=== PATIENT | female | born 1980 | race Caucasian/White ===

== ENCOUNTER → 2017-12-07 10:09 | Outpatient (CLI) | payer OTHER, SELFPAY ==
[2017-12-07 11:13] LABS: HCG,Quantitative 115 mIU/mL
== END ==
PROVIDERS: PCP Family Medicine; Visit Provider Nurse Practitioner Obstetrics & Gynecology
DX: Z32.00 Encounter for pregnancy test, result unknown (principal)
CPT/HCPCS: 36415; 84702

== ENCOUNTER → 2017-12-29 10:59 | Outpatient (CLI) | payer OTHER, SELFPAY ==
[2017-12-29 11:39] LABS: Basophils % 0.4 % (0.1-2.0); Eosinophils # 0.1 K/mm3 (0.0-0.4); Hematocrit 44.1 % (37.0-47.0); Hemoglobin 14.4 g/dL (12.2-16.2); Lymphocytes # 2.2 K/mm3 (0.7-4.5); Lymphocytes % 31.5 K/mm3 (10-50); Mean Corpuscular HGB Conc 32.6 g/dL (31.8-35.4); Mean Corpuscular Hemoglobin 30.7 pg (27.0-31.2); Mean Corpuscular Volume 94.2 fl (81-99); Mean Platelet Volume 7.1 fl (7.4-10.4); Monocytes # 0.3 K/mm3 (0.1-1.0); Monocytes % 4.4 % (1.7-9.3); Neutrophils # 4.4 K/mm3 (1.8-7.8); Neutrophils % 62.6 % (37.0-80.0); Platelet Count 228 K/mm3 (142-424); Red Blood Count 4.68 M/mm3 (4.20-5.40); Red Cell Distribution Width 13.2 % (11.5-17.5)
[2017-12-30 06:31] LABS: Rubella Antibodies, IgG 3.45 index (Immune >0.99)
[2017-12-30 12:37] LABS: HIV Screen 4th Generation wRfx Non Reactive (Non Reactive); Hepatitis B Surface Antigen Negative (Negative); Hepatitis C Antibody <0.1 s/co ratio (0.0-0.9); Rapid Plasma Reagin Ab Titer Non Reactive (NonRea<1:1)
== END ==
PROVIDERS: Family Provider Nurse Practitioner; PCP Family Medicine; Visit Provider Nurse Practitioner Obstetrics & Gynecology
DX: Z34.90 Encounter for supervision of normal pregnancy, unspecified, unspecified trimester (principal)
CPT/HCPCS: 36415; 85025; 86592; 86703; 86762; 86850; 87340; 87380; G0432

== ENCOUNTER → 2018-01-06 12:46 | Outpatient (CLI) | payer OTHER, SELFPAY ==
--- NOTE | 2018-01-06 12:47 | US_ITS ---
US OB transvaginal HISTORY: ITS.REASON: US OB Dates ORDERING PHYSICIAN: Papo Collins MD PATIENT AGE: 37 years COMPARISON: None FINDINGS: There is an intrauterine gestational sac with a mean sac diameter of 1 cm. Within the sac there is a small oval area of increased echogenicity. No heart tones are evident within this region. This measures 2 mm in length and could represent a compressed yolk sac or an early pole. A normal yolk sac is not identified. Cannot confirm viability at this time. The right ovary is 17 x 16 mm and has an unremarkable appearance. Blood flow is present. The left ovary is not demonstrated. No cul-de-sac fluid is evident. IMPRESSION: There is an intrauterine gestational. A 2 mm linear focus of increased echogenicity is present within the sac. This however does not contain heart tones and could represent a compressed yolk sac or an early pole however, normal yolk sac is not identified. Cannot confirm viability. Recommend correlation with serial beta hCGs and follow-up ultrasound.
[2018-01-06 16:32] LABS: HCG,Quantitative 16673 mIU/mL
== END ==
PROVIDERS: Family Provider Nurse Practitioner; PCP Family Medicine; Visit Provider Nurse Practitioner Obstetrics & Gynecology
DX: O26.841 Uterine size-date discrepancy, first trimester (principal)
CPT/HCPCS: 36415; 76817; 84702

== ENCOUNTER → 2018-01-06 14:21 | Outpatient (CLI) | payer OTHER, SELFPAY | PROVIDERS: PCP Family Medicine; Visit Provider Nurse Practitioner Obstetrics & Gynecology | DX: O26.841 Uterine size-date discrepancy, first trimester (principal) | CPT/HCPCS: 36415; 84702 ==

== ENCOUNTER → 2018-01-09 14:00 | Outpatient (CLI) | payer OTHER, SELFPAY ==
[2018-01-09 16:11] LABS: HCG,Quantitative 16961 mIU/mL
== END ==
PROVIDERS: PCP Family Medicine; Visit Provider Nurse Practitioner Obstetrics & Gynecology
DX: Z34.90 Encounter for supervision of normal pregnancy, unspecified, unspecified trimester (principal)
CPT/HCPCS: 36415; 84702

== ENCOUNTER → 2018-01-11 11:27 | Outpatient (CLI) | payer OTHER, SELFPAY ==
[2018-01-11 13:32] LABS: HCG,Quantitative 11921 mIU/mL
== END ==
PROVIDERS: PCP Family Medicine; Visit Provider Nurse Practitioner Obstetrics & Gynecology
DX: Z34.90 Encounter for supervision of normal pregnancy, unspecified, unspecified trimester (principal)
CPT/HCPCS: 36415; 84702

== ENCOUNTER → 2018-01-13 09:50 | Outpatient (CLI) | payer OTHER, SELFPAY ==
--- NOTE | 2018-01-13 09:51 | US_ITS ---
US OB transvaginal CLINICAL INDICATION: Follow-up miscarriage ITS.REASON: ORDERING PHYSICIAN: Papo Collins MD PATIENT AGE: 37 years Comparison: 01/06/2018 FINDINGS: The uterus is 9.5 x 3.9 x 3.9 cm. The endometrium is thickened at 1.3 cm with heterogeneous increased echogenicity within the endometrial area as well as some fluid in the lower endometrial region. The left ovary is 4 x 2 cm containing multiple small cysts. The right ovary is 2 x 1.8 cm and contains a 1 cm cyst. No cul-de-sac fluid. IMPRESSION: Heterogeneous echogenic material within the endometrium consistent with blood. Cannot exclude retained products of conception. Follow-up recommended
== END ==
PROVIDERS: Family Provider Nurse Practitioner; PCP Family Medicine; Visit Provider Nurse Practitioner Obstetrics & Gynecology
DX: O26.841 Uterine size-date discrepancy, first trimester (principal)
CPT/HCPCS: 76817

== ENCOUNTER → 2018-01-17 15:05 | Outpatient (CLI) | payer OTHER, SELFPAY | PROVIDERS: PCP Family Medicine; Visit Provider Nurse Practitioner Obstetrics & Gynecology | DX: O02.1 Missed abortion (principal) | CPT/HCPCS: 36415; 85461 ==

== ENCOUNTER → 2018-06-23 10:47 | Outpatient (CLI) | payer OTHER, SELFPAY ==
[2018-06-23 12:11] LABS: HCG,Quantitative 63 mIU/mL
== END ==
PROVIDERS: Visit Provider Nurse Practitioner Obstetrics & Gynecology
DX: Z32.00 Encounter for pregnancy test, result unknown (principal)
CPT/HCPCS: 36415; 84702

== ENCOUNTER → 2018-06-29 09:02 | Outpatient (CLI) | payer OTHER, SELFPAY ==
[2018-06-29 12:13] LABS: HCG,Quantitative 631 mIU/mL
== END ==
PROVIDERS: Visit Provider Nurse Practitioner Obstetrics & Gynecology
DX: Z34.90 Encounter for supervision of normal pregnancy, unspecified, unspecified trimester (principal)
CPT/HCPCS: 36415; 84702

== ENCOUNTER → 2018-07-05 13:05 | Outpatient (CLI) | payer OTHER, SELFPAY ==
[2018-07-05 15:22] LABS: Basophils % 0.4 % (0.1-2.0); Eosinophils # 0.1 K/mm3 (0.0-0.4); Eosinophils % 0.8 % (0.1-12.0); Hematocrit 43.1 % (37.0-47.0); Hemoglobin 14.7 g/dL (12.2-16.2); Lymphocytes # 2.2 K/mm3 (0.7-4.5); Lymphocytes % 31.1 % (10-50); Mean Corpuscular Hemoglobin 31.3 pg (27.0-31.2); Mean Corpuscular Volume 91.9 fl (81-99); Mean Platelet Volume 7.5 fl (7.4-10.4); Monocytes # 0.3 K/mm3 (0.1-1.0); Neutrophils # 4.6 K/mm3 (1.8-7.8); Neutrophils % 63.7 % (37.0-80.0); Platelet Count 256 K/mm3 (142-424); Red Blood Count 4.69 M/mm3 (4.20-5.40); Red Cell Distribution Width 12.7 % (11.5-17.5); White Blood Count 7.2 K/mm3 (4.8-10.8)
[2018-07-06 08:27] LABS: HIV Screen 4th Generation wRfx Non Reactive (Non Reactive)
[2018-07-06 15:08] LABS: Hepatitis B Surface Antigen Negative (Negative); Hepatitis C Antibody 0.1 s/co ratio (0.0-0.9); Rapid Plasma Reagin Ab Titer Non Reactive (NonRea<1:1)
== END ==
PROVIDERS: Visit Provider Nurse Practitioner Obstetrics & Gynecology
DX: Z34.90 Encounter for supervision of normal pregnancy, unspecified, unspecified trimester (principal)
CPT/HCPCS: 36415; 85025; 86592; 86703; 86762; 86850; 87340; 87380; G0432

== ENCOUNTER → 2018-07-09 09:14 | Outpatient (CLI) | payer OTHER, SELFPAY ==
[2018-07-09 11:25] LABS: HCG,Quantitative 11147 mIU/mL
== END ==
PROVIDERS: PCP Family Medicine; Visit Provider Emergency Medicine
DX: O20.9 Hemorrhage in early pregnancy, unspecified (principal)
CPT/HCPCS: 36415; 84702

== ENCOUNTER → 2018-12-06 16:39 | Outpatient (CLI) | payer OTHER, MEDICAID, SELFPAY ==
[2018-12-09 18:46] LABS: Neisseria gonorrhoeae, NAA Negative (Negative)
== END ==
PROVIDERS: Visit Provider Nurse Practitioner Obstetrics & Gynecology
DX: R30.0 Dysuria (principal); Z72.51 High risk heterosexual behavior
CPT/HCPCS: 87491; 87591

== ENCOUNTER → 2018-12-11 09:51 | Outpatient (CLI) | payer OTHER, MEDICAID, SELFPAY ==
[2018-12-11 10:47] LABS: HCG,Quantitative 117 mIU/mL
== END ==
PROVIDERS: PCP Nurse Practitioner Obstetrics & Gynecology; Visit Provider Nurse Practitioner Obstetrics & Gynecology
DX: Z32.00 Encounter for pregnancy test, result unknown (principal)
CPT/HCPCS: 36415; 84702

== ENCOUNTER → 2018-12-18 10:30 | Outpatient (CLI) | payer OTHER, MEDICAID, SELFPAY ==
[2018-12-18 11:41] LABS: HCG,Quantitative 3315 mIU/mL
== END ==
PROVIDERS: Visit Provider Nurse Practitioner Obstetrics & Gynecology
DX: Z34.90 Encounter for supervision of normal pregnancy, unspecified, unspecified trimester (principal)
CPT/HCPCS: 36415; 84702

== ENCOUNTER → 2019-01-03 10:02 | Outpatient (CLI) | payer MEDICAID, SELFPAY ==
[2019-01-03 10:48] LABS: Basophils % 0.4 % (0.1-2.0); Eosinophils # 0.1 K/mm3 (0.0-0.4); Hemoglobin 13.1 g/dL (12.2-16.2); Lymphocytes # 2.2 K/mm3 (0.7-4.5); Lymphocytes % 28.1 % (10-50); Mean Corpuscular Hemoglobin 30.4 pg (27.0-31.2); Mean Corpuscular Volume 94.9 fl (81-99); Mean Platelet Volume 7.4 fl (7.4-10.4); Monocytes # 0.4 K/mm3 (0.1-1.0); Monocytes % 5.1 % (1.7-9.3); Neutrophils # 5.1 K/mm3 (1.8-7.8); Neutrophils % 65.4 % (37.0-80.0); Platelet Count 230 K/mm3 (142-424); Red Blood Count 4.32 M/mm3 (4.20-5.40); Red Cell Distribution Width 14.3 % (11.5-17.5); White Blood Count 7.7 K/mm3 (4.8-10.8)
[2019-01-04 23:10] LABS: HIV Screen 4th Generation wRfx Non Reactive (Non Reactive); Hepatitis B Surface Antigen Negative (Negative); Hepatitis C Antibody <0.1 s/co ratio (0.0-0.9)
[2019-01-04 23:11] LABS: Rapid Plasma Reagin Ab Titer Non Reactive (NonRea<1:1); Rubella Antibodies, IgG 4.06 index (Immune >0.99)
== END ==
PROVIDERS: Visit Provider Nurse Practitioner Obstetrics & Gynecology
DX: Z34.90 Encounter for supervision of normal pregnancy, unspecified, unspecified trimester (principal)
CPT/HCPCS: 36415; 85025; 86592; 86703; 86762; 86850; 87340; 87380; G0432

== ENCOUNTER → 2019-04-06 07:40 | Outpatient (CLI) | payer OTHER, SELFPAY ==
--- NOTE | 2019-04-06 08:37 | US_ITS ---
PROCEDURE: US OB /MATERNAL DETAIL CLINICAL INDICATION: 20 WEEK ANATOMY Ob ultrasound complete COMPARISON: OBTV US OB transvaginal from 07/07/2018 FINDINGS: Single viable intrauterine gestation. Breech position. Placenta: Anteriorplacenta grade 1. There is average amount fluid. The cervix appears satisfactory. Closed and measuring 3.7 cm in length via transabdominal imaging. Complete survey performed and was unremarkable on the submitted images as in PACS. No discrete anomalies identified on survey imaging by technologist. Active fetus. Three-vessel cord with satisfactory umbilical cord insertion. 4- chamber heart noted. Survey of brain & ventricles Unremarkable. Face and neck survey unremarkable. Diaphragm and chest views unremarkable. Abdomen: Both kidneys noted and unremarkable. Stomach noted and satisfactory. Spine: Survey of the spine satisfactory with no anomalies identified nor imaged. Both arms and legs noted. Amniotic Fluid: Adequate. Maternal adnexa: No significant findings. Measurements: Average ultrasound age 21weeks. Gestational Age 21weeks Estimated due date by ultrasound age 0508/17/2019. Estimated weight 369grams. BPD = 21weeks 3days OFD = 21weeks 3days HC = 20weeks 5days AC = 20weeks 5days FL = 20weeks 5days Growth Percentile= 59Percent% Heart Rate = 138bpm Cerebellum = 20weeks 5days Humerus = 21weeks 3days HC/AC is 1.18 CI is 0.78 FL/BPD is 0.67 FL/AC is 0.22 IMPRESSION: Single live fetus in breech presentation with an average ultrasound age of 21 weeks and 0 days. All parameters correlate with no obvious anomalies. Please see above for detail Dictated by: Tyler Smyth MD 04/07/2019 07:24 Electronically signed by Tyler Smyth MD in [facility] 04/07/2019 07:24
== END ==
PROVIDERS: PCP Nurse Practitioner Obstetrics & Gynecology; Visit Provider Nurse Practitioner Obstetrics & Gynecology
DX: Z36.0 Encounter for antenatal screening for chromosomal anomalies (principal)
CPT/HCPCS: 76811

== ENCOUNTER → 2019-05-22 07:23 | Outpatient (CLI) | payer OTHER, SELFPAY ==
[2019-05-22 07:55] LABS: Glucose,Fasting 87 mg/dl (74-100)
[2019-05-22 09:38] LABS: Glucose 1 Hour 136 mg/dL (74-100)
== END ==
PROVIDERS: Visit Provider Nurse Practitioner Obstetrics & Gynecology
DX: O26.899 Other specified pregnancy related conditions, unspecified trimester (principal); Z67.91 Unspecified blood type, Rh negative
CPT/HCPCS: 36415; 82951

== ENCOUNTER 2019-05-23 08:23 | Outpatient (CLI) | payer OTHER, SELFPAY ==
[2019-05-23 08:25] VITALS: BP 115/78; PULSE 103; RESP 18; TEMP 36.7; O2SAT 98
== END 2019-05-23 08:37 | disposition home or self-care (01) ==
LOC: INF 08:23
PROVIDERS: PCP Nurse Practitioner; Visit Provider Nurse Practitioner Obstetrics & Gynecology
DX: Z34.90 Encounter for supervision of normal pregnancy, unspecified, unspecified trimester (principal)
CPT/HCPCS: 96372; J2790

== ENCOUNTER 2019-06-10 11:17 | Outpatient (CLI) | payer OTHER, SELFPAY ==
[2019-06-10 11:25] VITALS: BP 131/94; PULSE 95; RESP 18; TEMP 36.8; O2SAT 98; BMI 24.9
[2019-06-10 11:41] LABS: Microscopic, Urine URINE MICROSCOPIC (MICROSCOPIC)
[2019-06-10 11:45] LABS: Appearance,Urine CLEAR (Clear); Bilirubin,Urine Negative (Negative); Blood, Urine Negative (Negative); Color,Urine YELLOW (Yellow); Glucose,Urine (UA) Negative (Negative); Ketones,Urine Negative (Negative); Leukocyte Esterase,Urine TRACE (Negative); Nitrate,Urine Negative (Negative); Protein,Urine Negative (Negative); Specific Gravity, Urine 1.025 (1.005-1.030); Urobilinogen,Urine 0.2 EU/dl (0.2)
[2019-06-10 11:54] LABS: Amorphous Sediment,Urine 2+ /lpf
[2019-06-10 11:56] LABS: Benzodiazepines Screen,Urine Negative ng/ml (<200)
[2019-06-10 11:57] LABS: Amphetamine/Metha Screen,Urine Negative ng/ml (<1000)
[2019-06-10 11:58] LABS: Barbiturates Screen,Urine Negative ng/ml (<200); Methadone Screen,Urine Negative ng/ml (<300)
[2019-06-10 11:59] LABS: Cannabinoid Screen,Urine Negative ng/ml (<50); Cocaine Screen,Urine Negative ng/ml (<300)
[2019-06-10 12:00] LABS: Phencyclidine Screen,Urine Negative ng/ml (<25)
[2019-06-10 12:01] LABS: Opiate Screen,Urine Negative ng/ml (<300)
[2019-06-10 12:13] LABS: Fetal Fibronectin (Rapid) Negative (Negative)
== END 2019-06-10 13:20 | disposition home or self-care (01) ==
LOC: OBOUT 11:19 → OB 11:24
PROVIDERS: Obstetrics & Gynecology; PCP Family Medicine; Visit Provider Nurse Practitioner Obstetrics & Gynecology
DX: O47.03 False labor before 37 completed weeks of gestation, third trimester; Z3A.29 29 weeks gestation of pregnancy
CPT/HCPCS: 59025; 80305; 81001; 82731; 96372

== ENCOUNTER → 2019-07-23 17:11 | Outpatient (CLI) | payer OTHER, SELFPAY | PROVIDERS: Visit Provider Nurse Practitioner Obstetrics & Gynecology | DX: Z34.90 Encounter for supervision of normal pregnancy, unspecified, unspecified trimester (principal) | CPT/HCPCS: 86403 ==

== ENCOUNTER → 2019-07-25 07:46 | Outpatient (CLI) | payer OTHER, SELFPAY ==
--- NOTE | 2019-07-25 07:47 | US_ITS ---
PROCEDURE: US OB FOLLOW UP CLINICAL INDICATION: sga Small for gestational age COMPARISON: US OB /MATERNAL DETAIL from 04/06/2019 FINDINGS: There is a single live fetus present which is in cephalic presentation. The cervix is closed at 3.5 cm. Average ultrasound age is 37 weeks and 0 days with an estimated weight of 2870 g which is 53 percentile. Estimated due date by ultrasound is 08/15/2019. Following parameters are obtained BPD 37 weeks 5 days, HC 38 weeks 2 days, AC 35 weeks 5 days, FL 36 weeks 6 days. All parameters correlate. The placenta is anterior and grade 1. [place] 16 cm. Biophysical profile 8 of 8 IMPRESSION: Live IUP at 37 weeks 0 days with an estimated weight of 2870 g which is 53rd percentile. Biophysical profile 8 of 8. Amniotic fluid index 16 cm Dictated by: Tyler Smyth MD 07/25/2019 16:25 Electronically signed by Tyler Smyth MD in [facility] 07/25/2019 16:25
== END ==
PROVIDERS: PCP Family Medicine; Visit Provider Nurse Practitioner Obstetrics & Gynecology
DX: O36.5990 Maternal care for other known or suspected poor fetal growth, unspecified trimester, not applicable or unspecified (principal)
CPT/HCPCS: 76816; 76819

== ENCOUNTER 2019-07-31 10:07 | Outpatient (CLI) | payer OTHER, SELFPAY ==
[2019-07-31 10:13] VITALS: BMI 27.0
[2019-07-31 10:30] VITALS: BP 140/79; PULSE 94; RESP 18; TEMP 36.7; O2SAT 96; BMI 27.0
[2019-07-31 10:38] LABS: Microscopic, Urine URINE MICROSCOPIC (MICROSCOPIC)
[2019-07-31 10:43] LABS: Appearance,Urine CLEAR (Clear); Bilirubin,Urine Negative (Negative); Blood, Urine TRACE-I (Negative); Color,Urine YELLOW (Yellow); Glucose,Urine (UA) Negative (Negative); Ketones,Urine Negative (Negative); Leukocyte Esterase,Urine 1+ (Negative); Nitrate,Urine Negative (Negative); Protein,Urine Negative (Negative); Urobilinogen,Urine 0.2 EU/dl (0.2)
[2019-07-31 10:50] LABS: Fetal Membrane Rupture (Rapid) Negative (Negative)
[2019-07-31 10:54] LABS: Barbiturates Screen,Urine Negative ng/ml (<200); Benzodiazepines Screen,Urine Negative ng/ml (<200)
[2019-07-31 10:55] LABS: Amphetamine/Metha Screen,Urine Negative ng/ml (<1000)
[2019-07-31 10:56] LABS: Bacteria,Urine 2+ /lpf; Cannabinoid Screen,Urine Negative ng/ml (<50); Cocaine Screen,Urine Negative ng/ml (<300)
[2019-07-31 10:57] LABS: Methadone Screen,Urine Negative ng/ml (<300)
[2019-07-31 10:58] LABS: Opiate Screen,Urine Negative ng/ml (<300); Phencyclidine Screen,Urine Negative ng/ml (<25)
--- NOTE | 2019-07-31 11:22 | P.PN_ITS ---
Internal Medicine - PN: Subj *Date: 07/31/19 *Time: 11:22 Interval history: She says that she has been up all night with low back pain. She is having regular contractions. Her cervix is still closed and long. She also thinks that she may have been leaking fluid when she got out of the shower. Her AmniSure is negative. Exam Vital signs and Labs for Last 24 Hours: Temp Pulse Resp BP Pulse Ox 98.1 F 94 H 18 140/79 96 07/31/19 10:30 07/31/19 10:30 07/31/19 10:30 07/31/19 10:30 07/31/19 10:30 Laboratory Results - last 24 hr 07/31/19 10:15: Urine Color Yellow, Urine Appearance Clear, Urine pH 7.0, Ur Specific [place] 1.010, Urine Protein Negative, Urine Glucose (UA) Negative, Urine Ketones Negative, Urine Blood Trace-i, Urine Nitrate Negative, Urine Bilirubin Negative, Urine Urobilinogen 0.2, Ur Leukocyte Esterase 1+ A, Urine RBC 5-10, Urine WBC 10-20, Ur Squamous Epith Cells 10-20, Urine Bacteria 2+ 07/31/19 10:15: Urine Opiates Screen Negative, Urine Methadone Screen Negative, Ur Barbituates Screen Negative, Ur Phencyclidine Scrn Negative, Ur Amphetamines Screen Negative, U Benzodiazepines Scrn Negative, Urine Cocaine Screen Negative, U Marijuana (THC) Screen Negative 07/31/19 10:27: Membrane Rupture Negative I & O for Last 24 hours: Intake & Output 07/28/19 07/29/19 07/30/19 07/31/19 11:59 11:59 11:59 11:59 Weight 143 lb - Constitutional no acute distress - *Routine HEENT Exam Head: Present: normocephalic Eye: Present: EOMI, PERRL ENT: Present: mucous membranes moist Assessment and Plan (1) False labor after 37 completed weeks of gestation Current visit: Yes Status: Acute Category: Medical Code(s): O47.1 - False labor at or after 37 completed weeks of gestation - Assessment and plan all Dx Assessment and Plan for all problems:: She is 37 weeks today. She is having regular contractions. We have given her a liter of fluid and her contractions still persist. We will go ahead and give her some Brethine. AmniSure is negative. Cervix has not changed and is long and closed. We will plan to send her home if things settle.
[2019-07-31 11:50] VITALS: BP 129/66
== END 2019-07-31 12:04 | disposition home or self-care (01) ==
LOC: OBOUT 10:09 → OB 10:10
PROVIDERS: PCP Family Medicine; Visit Provider Nurse Practitioner Obstetrics & Gynecology
DX: O26.893 Other specified pregnancy related conditions, third trimester (principal); Z3A.36 36 weeks gestation of pregnancy
CPT/HCPCS: 59025; 80305; 81001; 84112; 87086; 96365; 96372; G0463

== ENCOUNTER → 2019-08-15 10:44 | Outpatient (CLI) | payer OTHER, SELFPAY ==
[2019-08-16 14:15] LABS: Covid-19 Nasal PCR Sendout Lex NOT DETECTED
== END ==
PROVIDERS: Visit Provider Nurse Practitioner Obstetrics & Gynecology
DX: Z03.818 Encounter for observation for suspected exposure to other biological agents ruled out (principal)
CPT/HCPCS: U0004

== ENCOUNTER 2019-08-17 05:25 | Inpatient (IN) | payer OTHER, SELFPAY ==
--- NOTE | 2019-08-14 08:51 | SUR.PREOP ---
08/14/2019 @ 0845--PHONE CALL MADE TO PATIENT. PATIENT UNDERSTANDS THAT LAB WORK AND COVID TESTING NEEDS TO BE COMPLETED @ 0900 ON 08/15/2019. PATIENT UNDERSTANDS IF LAB WORK AND COVID-19 TESTS ARE NOT COMPLETED BY 12PM ON THAT DATE, THE SURGERY SCHEDULED WILL BE CANCELLED AND RESCHEDULED FOR ANOTHER TIME.
[2019-08-17] VITALS (10 sets, daily range): BP systolic 117–144; BP diastolic 64–93; PULSE 71–96; RESP 16–18; TEMP 36.4–37; O2SAT 97–99; BMI 27.0
[2019-08-17 06:11] LABS: Microscopic, Urine URINE MICROSCOPIC (MICROSCOPIC)
[2019-08-17 06:17] LABS: Chloride 106 mmol/L (98-107); Sodium 132 mmol/L (136-145)
[2019-08-17 06:18] LABS: Basophils % 0.3 % (0.1-2.0); Eosinophils # 0.1 K/mm3 (0.0-0.4); Eosinophils % 0.8 % (0.1-12.0); Hematocrit 40.3 % (37.0-47.0); Hemoglobin 13.4 g/dL (12.2-16.2); Lymphocytes # 2.3 K/mm3 (0.7-4.5); Lymphocytes % 20.7 % (10-50); Mean Corpuscular HGB Conc 33.2 g/dL (31.8-35.4); Mean Corpuscular Hemoglobin 31.2 pg (27.0-31.2); Mean Corpuscular Volume 94.1 fl (81-99); Mean Platelet Volume 9.4 fl (7.4-10.4); Monocytes # 0.6 K/mm3 (0.1-1.0); Monocytes % 5.1 % (1.7-9.3); Neutrophils % 73.1 % (37.0-80.0); Platelet Count 179 K/mm3 (142-424); Potassium 3.9 mmoL/L (3.5-5.1); Red Blood Count 4.29 M/mm3 (4.20-5.40); Red Cell Distribution Width 14.4 % (11.5-17.5)
[2019-08-17 06:20] LABS: Blood Urea Nitrogen 11 mg/dl (7-17); Creatinine Clearance Estimated 130 mL/min (50-200); Estimated Glomerular Filt Rate 112 ml/min (>60); GFR (African American) 135 ML/MIN (>60)
[2019-08-17 06:20] LABS: Appearance,Urine CLEAR (Clear); Bilirubin,Urine Negative (Negative); Blood, Urine Negative (Negative); Color,Urine YELLOW (Yellow); Glucose,Urine (UA) Negative (Negative); Ketones,Urine Negative (Negative); Leukocyte Esterase,Urine TRACE (Negative); Nitrate,Urine Negative (Negative); Protein,Urine Negative (Negative); Specific Gravity, Urine >= 1.030 (1.005-1.030); Urobilinogen,Urine 0.2 EU/dl (0.2)
[2019-08-17 06:21] LABS: Anion Gap 10.9 mEq/L (5-15); Calcium 9.4 mg/dl (8.4-10.2); Carbon Dioxide 19 mmol/L (22.0-30.0); Glucose 83 mg/dl (74-100)
[2019-08-17 06:31] LABS: Barbiturates Screen,Urine Negative ng/ml (<200)
[2019-08-17 06:32] LABS: Amphetamine/Metha Screen,Urine Negative ng/ml (<1000); Benzodiazepines Screen,Urine Negative ng/ml (<200)
[2019-08-17 06:33] LABS: Cocaine Screen,Urine Negative ng/ml (<300)
[2019-08-17 06:34] LABS: Amorphous Sediment,Urine 1+ /lpf; Bacteria,Urine 2+ /lpf; Cannabinoid Screen,Urine Negative ng/ml (<50); Methadone Screen,Urine Negative ng/ml (<300); Mucus,Urine 3+ /lpf
[2019-08-17 06:35] LABS: Opiate Screen,Urine Negative ng/ml (<300)
[2019-08-17 06:36] LABS: Phencyclidine Screen,Urine Negative ng/ml (<25)
--- NOTE | 2019-08-17 08:40 | HMH.ANESCL ---
[facility] Anesthesia Checklist - Patient Identification Patient Identification: Arm Band - Structural Data Admitted From: Inpatient Planned Operative Procedure/s: repeat c/s with btl Consent for Planned Operative Procedure(s) Verified: Yes Verified Documents: Surgical Consent, History and Physical - NPO Status Verified Time NPO: 00:00 - Additional verifications Anesthesia Reactions: No Hx Blood Transfusions: No Blood Transfusion Reaction: No - Airway Assessment C-Spine Mobility Assessed: Yes (mp2) TMJ Mobility Assessed: Yes Dentition: Good Dentition - Neurological Assessment Level of Consciousness: Awake, Alert - Anesthesia Plan Anesthesia Risk discussed: Yes Anesthesia Plan: Verified ASA Class: II Anesthesia Type: Spinal [facility] History I have reviewed the patient's past medical history: Yes Medical History: Reports:: Anxiety, Depression, Migraine Denies:: Cancer, Diabetes Mellitus Type 1, Diabetes Mellitus Type 2, Internal Pacemaker, MRSA, Seizures *Have you ever received a pneumonia vaccine?: No *Have you received a flu vaccine this season?: No Other Medical History: Reports: Sinus Problems, Other. Denies: Blood Transfusion Reaction Anesthesia experience/problems:: nac Other Surgeries: Yes: (x2 first in june of 1999), Dilation and Curettage. No: Pacemaker Amputation: No Fractures: No - *Social History Smoking Status: Current every day smoker Tobacco Type: cigarettes # Packs/Day (cigarettes): 1 Alcohol Intake: never Alcohol Intake Frequency:: other Substance Use Type: denies use *Occupational Status:: unemployed Housing: house Household Members: spouse *Travel in the last 8 weeks: None - Psychiatric History Pschychiatric History:: Reports:: Anxiety, Depression Family Hx:: No significant family history GASOLINE ATTENDANT history: Spontaneous Para: 2
--- NOTE | 2019-08-17 08:41 | P.PN_ITS ---
[facility] Anesthesia Record Part I Intake, IV Amount: 2,000 Estimated blood loss (mL): 800 Urine output (mL): 375 Blood Pressure: 144/93 SaO2: 99 Pulse Rate: 79 Respiratory Rate: 16 Temperature: 97.7 F Patient is:: Awake, Stable Stable to PACU at:: 08:35
--- NOTE | 2019-08-17 09:04 | HMH.OPNOTE ---
Date of procedure: 08/17/19 Pre-op Diagnosis:: Term , desire for sterilization, previous section Post-op Diagnosis:: Term , previous section, desire for sterilization, uterine atony Procedure performed:: Repeat lower segment transverse section and bilateral salpingectomy Surgeon:: Papo Collins MD Oil Rag Washer(s):: Jolly Razo [employer] INSTRUCTOR:: Gordon Hall Anesthesia: spinal Estimated blood loss (mL): 800 Clinical Note:: She is a 39-year-old 6 para 2 aborta 3 who was 39 weeks gestational age. She has had 2 previous sections and as result of that she was scheduled for a repeat lower segment transverse section. She also expresses a desire for bilateral salpingectomy. The risks and benefits of surgery as well as the irreversibility of bilateral salpingectomy were discussed with the patient prior to surgery. Operative findings:: She had a normal-appearing uterus and ovaries and tubes. She delivered a liveborn male child at 7:49 AM on the morning of August 17, 2019. The baby had Apgars of 8 at 1 minute and 9 at 5 minutes. pH was 7.40. The uterus itself was quite boggy after the surgery. Operative note:: She was taken to the operating room where spinal anesthesia was found be adequate. She was prepped and draped in normal sterile fashion in the supine position with a leftward tilt. A Govea catheter was in the bladder. A Pfannenstiel skin incision was made with knife then carried through to the underlying layer of fascia with cautery. I had made a crescentic incision around the scar itself because it was quite wide and remove the scar tissue. The fascia was opened in the midline with cautery and extended laterally using Forrester scissors. Austin clamps were applied to the superior aspect of the fascial incision which was tented up and the underlying rectus muscles dissected off using cautery. The Austin clamps were then applied to the inferior aspect of the fascial incision which in a similar fashion was tented up and the underlying rectus muscles dissected off using cautery. The rectus muscles were then in the midline, the peritoneum identified, and entered sharply with Metzenbaum scissors. This incision was then extended superiorly and inferiorly with cautery. We had good visualization of the bladder inferiorly. The bladder peritoneum was then opened in the midline and extended laterally using Metzenbaum scissors. A bladder flap was created digitally. Transverse incision was made through the uterine muscle to the amnion. This incision was then extended laterally using fingers traction. The amnion was entered sharply with knife. There was clear amniotic fluid. The infant's head was then delivered atraumatically. A loose nuchal cord was then reduced. This was followed by the anterior shoulder and the rest of the infant's body atraumatically. The oropharynx and nasopharynx were bulb suctioned. The infant was then handed off to Dr. Huddleston. Who assigned Apgars of 8 at 1 minute and 9 at 5 minutes. We then obtained cord blood as well as cord pH. The pH was 7. 40. Using gentle traction on the cord and countertraction on the fundus I was able to easily deliver the placenta intact. It had a normal three-vessel cord. The uterus was then cleared of clots and debris . The uterus was then exteriorized from the abdominal cavity. The uterine incision was then closed using running 0 Vicryl suture in a locked fashion. A second layer of the same suture was used to imbricate the first layer. The bladder peritoneum was then closed using running 2-0 Vicryl suture in a locked fashion. The gutters and cul-de-sac were then cleared of clots and debris . Once again hemostasis was assured. We then performed a bilateral salpingectomy. The right tube was grasped with a [place] and using cautery I cauterized along the mesosalpinx. The tube was then cauterized close to the uterus. The tube was complet
--- NOTE | 2019-08-17 10:44 | HMH.ANESII ---
[facility] Anesthesia Record Part II Discharge Time: 09:05 Destination: Obstetric PACU nurse assessment reviewed?: Yes Patient Condition:: Good Anesthesia Complications:: None Swallowing reflex intact?: Yes Cyanosis?: No Blood Pressure: 120/77 Pulse Rate: 78 Temperature: 97.9 F Mental Status: Alert & Oriented Pain level:: 0 Nausea and/or vomitting:: None Intake, IV Amount: 0
[2019-08-17 14:14] LABS: Microscopic,Cath URINE MICROSCOPIC (MICROSCOPIC)
[2019-08-17 14:17] LABS: Appearance,Urine/Cath CLEAR (Clear); Bilirubin,Cath Negative (Negative); Blood, Urine/Cath 1+ (Negative); Color,Urine/Cath YELLOW (Yellow); Glucose,Urine/Cath (UA) Negative (Negative); Ketones,Urine/Cath Negative (Negative); Leukocyte Esterase,Cath Negative (Negative); Nitrate,Cath Negative (Negative); Protein,Urine/Cath Negative (Negative); Specific Gravity, Urine/Cath 1.015 (1.005-1.030); Urobilinogen,Cath 0.2 EU/dl (0.2)
[2019-08-17 14:58] LABS: Squamous Epithelial Ur./Cath Occasional #/hpf (0-5); WBC,Urine/Cath Occasional #/hpf (0-3)
[2019-08-18 05:07] LABS: Hematocrit 35.1 % (37.0-47.0)
[2019-08-18 05:08] LABS: Hemoglobin 11.6 g/dL (12.2-16.2)
[2019-08-18 08:00] VITALS: BP 108/66; RESP 16; TEMP 36.8
--- NOTE | 2019-08-18 13:25 | P.PN_ITS ---
Internal Medicine - PN: Subj *Date: 08/18/19 *Time: 13:25 Interval history: POD #1 c section No complaints Lochia small, pain control sufficient asymptomatic with mild anemia tolerating regular diet ambulating and voiding without difficulty Exam Vital signs and Labs for Last 24 Hours: Temp Pulse Resp BP Pulse Ox 98.3 F 96 H 16 108/66 L 99 08/18/19 08:00 08/17/19 16:23 08/18/19 08:00 08/18/19 08:00 08/17/19 16:23 Laboratory Results - last 24 hr 08/17/19 07:43: Urine Color Yellow, Urine Appearance Clear, Urine pH 7.0, Ur Specific [place] 1.015, Urine Protein Negative, Urine Glucose (UA) Negative, Urine Ketones Negative, Urine Blood 1+, Urine Nitrate Negative, Urine Bilirubin Negative, Urine Urobilinogen 0.2, Ur Leukocyte Esterase Negative, Urine RBC 5- 10, Urine WBC Occasional, Ur Squamous Epith Cells Occasional, Urine Bacteria None 08/18/19 04:55: Hgb 11.6 L D, Hct 35.1 L I & O for Last 24 hours: Intake & Output 08/16/19 08/17/19 08/18/19 08/19/19 11:59 11:59 11:59 11:59 Intake Total 1999 Output Total 375 / 375 760 / 760 Balance 1625 / 1625 -760 / -760 Weight 143 lb Microbiology Reports for the Last 24 Hours: Microbiology 08/17/19 05:45 Urine,Clean Catch Urine Culture - Preliminary Narrative: CONSTITUTIONAL: no acute distress HEENT: mucous membranes moist PULMONARY: breathing unlabored without audible wheezes CV: no tachycardia or visible JVD; normal LE peripheral pulses ABD: soft, ND; appropriately tender but no rebound/guarding : fundus firm at/below umbilicus SKIN: dressing intact with no drainage, erythema or induration EXT: 1+ edema LEs NEURO: alert/oriented, no altered mental status PSYCH: appropriate mood and demeanor without anxiety/depression Assessment and Plan (1) Delivery by section Current visit: Yes Status: Acute Category: Surgical (2) Acute blood loss anemia Current visit: Yes Status: Acute Category: Medical Code(s): D62 - Acute posthemorrhagic anemia - Assessment and plan all Dx Assessment and Plan for all problems:: Routine /postop care Continue PNV with FeSO4 Anticipate discharge home tomorrow
[2019-08-18 20:30] VITALS: BP 127/85; RESP 18; TEMP 36.8; O2SAT 99
--- NOTE | 2019-08-19 12:29 | HMH.DCSUM ---
General - General Admission date:: 08/17/19 Discharge date: 08/19/19 HPI HPI: She is a 39-year-old 6 now para 3 aborta 3 who was 39 and 2 weeks gestational age. She is had 2 previous sections and as result of that was offered repeat lower segment transverse section at term. She also expressed desire for sterilization and she was offered bilateral salpingectomy as well. Hospital Course Hospital Course: On August 17, 2019 she underwent a repeat lower segment transverse section and bilateral salpingectomy. She also had uterine atony and required a B-Mace suture. She has done well postoperatively and has remained afebrile with her hospitalization. She is O Rh- blood and she did not receive RhoGam since her baby has Rh- blood. She is rubella immune and was group B streptococcus negative. She is bottlefeeding. Her cook camp Dr. Huddleston. She is discharged home to follow-up with me in approximately 2 weeks time. She will continue with her vitamins and iron. She was given a prescription for Percocet 5/325 number 20 tablets. She will also take ibuprofen. She was given the usual instructions with respect to limiting her activity, driving and sexual activity. Her condition on discharge is stable and improved. Her hemoglobin is normal and she really did not lose a lot of blood intrapartum even though the blood loss was said to be 1900 cc. I suspect most of that was amniotic fluid. Rhogam Administration: Not Indicated Objective Vital signs: Temp Pulse Resp BP Pulse Ox 98.3 F 96 H 18 127/85 99 08/18/19 20:30 08/17/19 16:23 08/18/19 20:30 08/18/19 20:30 08/18/19 20:30 no acute distress - *Routine HEENT Exam Head: Present: normocephalic Eye: Present: EOMI, PERRL ENT: Present: mucous membranes moist Results Labs on day of discharge: Preliminary micro results at discharge 08/17/19 05:45 Urine Culture - Preliminary Urine,Clean Catch DS: Diagnosis - Discharge Diagnosis (1) Delivery by section Status: Acute (2) Acute blood loss anemia Status: Acute Discharge Plan - Patient Discharge Instructions ACTIVITY: No heavy lifting DIET: continue same diet Additional Instructions: No strenuous activity, no driving for 2 weeks or while taking prescription narcotics, nothing in the vagina for 6 weeks. Patient Instructions: Depression, Hemorrhage, DI for , DI for Pre-eclampsia, DI for Surgical Site Infection, DI for Postoperative Pain, [facility] Post Discharge Instructions, Preventing the Spread of Coronavirus Discharge Instructions - Follow up Plan Follow up with: Papo Collins MD [Staff Physician] - Disposition: Home, Self-Alf Medications: Home Medications Medication Instructions Recorded Confirmed Type 21/Iron Fu/Folic Acid 1 each PO DAILY 01/31/18 08/17/19 History [ Complete Caplet] RX: Ferrous Sulfate 325 mg PO DAILY 05/23/19 08/17/19 History Oxycodone HCl/Acetaminophen 1 tab PO Q6 PRN #20 tablet 08/19/19 Rx [Percocet 5/325mg tablet] Prescriptions/Medication Reconciliation: New Oxycodone HCl/Acetaminophen [Percocet 5/325mg tablet] 1 tab PO Q6 PRN #20 tablet PRN Reason: Severe Pain Continued 21/Iron Fu/Folic Acid [ Complete Caplet] 1 each PO DAILY RX: Ferrous Sulfate 325 mg PO DAILY - Problem Reconciliation Problems Reviewed?: Yes
== END 2019-08-19 14:40 | disposition home or self-care (01) | DRG 785 ==
PROVIDERS: Admitting Provider Nurse Practitioner Obstetrics & Gynecology; PCP Family Medicine; Visit Provider Nurse Practitioner Obstetrics & Gynecology
PROC: 0UL70ZZ Occlusion of Bilateral Fallopian Tubes, Open Approach (ICD-10-PCS; CPT 59514; principal; 2019-08-17 07:30)
DX: O34.211 Maternal care for low transverse scar from previous cesarean delivery (principal); N85.8 Other specified noninflammatory disorders of uterus; Z3A.39 39 weeks gestation of pregnancy; Z37.0 Single live birth; O69.81X0 Labor and delivery complicated by cord around neck, without compression, not applicable or unspecified; Z30.2 Encounter for sterilization
CPT/HCPCS: 59514; 58611; 59025; 80048; 80305; 81001; 82800; 85014; 85018; 85025; 86850; 87086; 88302; 94761; J2405; U0004

== ENCOUNTER → 2020-03-18 17:39 | Outpatient (CLI) | payer OTHER, SELFPAY ==
[2020-03-21 03:32] LABS: Neisseria gonorrhoeae, NAA Negative (Negative)
== END ==
PROVIDERS: Visit Provider Nurse Practitioner Obstetrics & Gynecology
DX: Z72.51 High risk heterosexual behavior (principal)
CPT/HCPCS: 87491; 87591

== ENCOUNTER → 2020-08-25 09:17 | Outpatient (CLI) | payer OTHER, SELFPAY | PROVIDERS: PCP Family Medicine; Visit Provider Nurse Practitioner Family | DX: Z20.822 Contact with and (suspected) exposure to COVID-19 (principal) | CPT/HCPCS: U0003 ==

== ENCOUNTER → 2020-11-18 14:39 | Outpatient (CLI) | payer OTHER, SELFPAY | PROVIDERS: PCP Family Medicine; Visit Provider Family Medicine | DX: Z20.822 Contact with and (suspected) exposure to COVID-19 (principal) | CPT/HCPCS: U0003 ==

== ENCOUNTER → 2021-01-02 14:33 | Outpatient (CLI) | payer OTHER, SELFPAY ==
--- NOTE | 2021-01-02 14:38 | XR_ITS ---
PROCEDURE: XR KNEE LT 3V CLINICAL INDICATION: INJURY OF LT KNEE, LT ANTERIOR KNEE PAIN COMPARISON: No exams were available for comparison FINDINGS: No fracture or dislocation. No lytic or blastic change. There is normal mineralization. The joint spaces are well-preserved. No significant degenerative/arthritic changes. No erosive changes evident. Other findings:None. IMPRESSION: No acute findings. Dictated by: Tyler Smyth MD 01/02/2021 14:58 Tyler Smyth MD in [facility] 01/02/2021 14:58
== END ==
PROVIDERS: PCP Family Medicine; Visit Provider Nurse Practitioner Family
DX: S89.92XA Unspecified injury of left lower leg, initial encounter (principal); M25.562 Pain in left knee
CPT/HCPCS: 73562

== ENCOUNTER → 2021-04-27 15:56 | Outpatient (CLI) | payer OTHER, SELFPAY | PROVIDERS: Visit Provider Nurse Practitioner | DX: U07.1 COVID-19 (principal) | CPT/HCPCS: C9803; U0003; U0005 ==

== ENCOUNTER → 2021-05-04 13:03 | Outpatient (CLI) | payer OTHER, SELFPAY | PROVIDERS: Visit Provider Nurse Practitioner | DX: U07.1 COVID-19 (principal) | CPT/HCPCS: C9803; U0003; U0005 ==

== ENCOUNTER 2021-11-18 05:13 | Emergency (ER) | payer SELFPAY ==
[2021-11-18] VITALS (8 sets, daily range): BP systolic 92–121; BP diastolic 53–67; PULSE 90–118; RESP 16–18; TEMP 36.7–36.9; O2SAT 93–100; BMI 23.0
--- NOTE | 2021-11-18 05:39 | XR_ITS ---
PROCEDURE INFORMATION: Exam: XR Chest Exam date and time: 11/18/2021 5:36 AM Age: 41 years old Clinical indication: Cough TECHNIQUE: Imaging protocol: Radiologic exam of the chest. Views: 2 views. COMPARISON: No relevant prior studies available. FINDINGS: Lungs: Hyperinflation, interstitial prominence, and localized right infrahilar airspace disease. Pleural spaces: No pleural effusion. Heart/Mediastinum: No cardiomegaly. Bones/joints: Unremarkable. IMPRESSION: Hyperinflation, interstitial prominence, and localized right infrahilar airspace disease.
[2021-11-18 05:50] LABS: Basophils # 0.1 K/mm3 (0-0.2); Basophils % 0.9 % (0.1-2.0); Eosinophils # 0.3 K/mm3 (0.0-0.4); Eosinophils % 1.6 % (0.1-12.0); Hematocrit 44.4 % (37.0-47.0); Hemoglobin 14.4 g/dL (12.2-16.2); Lymphocytes # 1.6 K/mm3 (0.7-4.5); Mean Corpuscular HGB Conc 32.5 g/dL (31.8-35.4); Mean Corpuscular Hemoglobin 31.3 pg (27.0-31.2); Mean Corpuscular Volume 96.3 fl (81-99); Mean Platelet Volume 8.2 fl (7.4-10.4); Monocytes # 0.5 K/mm3 (0.1-1.0); Monocytes % 3.1 % (1.7-9.3); Neutrophils # 13.6 K/mm3 (1.8-7.8); Neutrophils % 84.4 % (37.0-80.0); Platelet Count 229 K/mm3 (142-424); Red Blood Count 4.61 M/mm3 (4.20-5.40); Red Cell Distribution Width 13.3 % (11.5-17.5); White Blood Count 16.1 K/mm3 (4.8-10.8)
[2021-11-18 05:51] LABS: Coronavirus 19, PCR Not Detected (NotDetected); Influenza A, PCR Not Detected (NotDetected); Influenza B, PCR Not Detected (NotDetected)
[2021-11-18 05:54] LABS: Alanine Aminotransferase 15 U/L (12-78); Albumin Level 3.9 g/dl (3.5-5.0); Albumin/Globulin Ratio 1.1 (1.1-1.8); Alkaline Phosphatase 149 U/L (38-126); Amylase 54 U/L (30-110); Anion Gap 10.5 mEq/L (5-15); Aspartate Amino Transferase 21 U/L (14-36); Blood Urea Nitrogen 11 mg/dl (7-17); Calcium 8.8 mg/dl (8.4-10.2); Carbon Dioxide 25 mmol/L (22.0-30.0); Chloride 106 mmol/L (98-107); Creatinine Clearance Estimated 109 mL/min (50-200); Estimated Glomerular Filt Rate 111 ml/min (>60); GFR (African American) 134 ML/MIN (>60); Globulin 3.4 g/dL (1.3-3.2); Glucose 115 mg/dl (74-100); Lipase 37 U/L (23-300); Potassium 3.5 mmoL/L (3.5-5.1); Sodium 138 mmol/L (136-145); Total Protein,Serum 7.3 g/dl (6.3-8.2)
[2021-11-18 05:55] LABS: Bilirubin,Total < 0.1 mg/dl (0.2-1.3)
[2021-11-18 05:57] LABS: MANUAL DIFFERENTIAL MANUAL DIFFERENTIAL (MANUAL DIFF)
[2021-11-18 06:00] LABS: C-Reactive Protein 157.3 mg/L (0-4)
[2021-11-18 06:13] LABS: Lymphocytes % 14 % (10-50); Monocytes % 7 % (2-9); Neutrophils % 79 % (42-76); Platelet Estimate Normal; RBC Morphology Normal; Total Cells Counted 100
--- NOTE | 2021-11-18 06:16 | HMH.EDNVD ---
ED Disposition Clinical Impression: CAP (community acquired pneumonia) Qualifiers: Laterality: unspecified laterality Qualified Code(s): J18.9 - Pneumonia, unspecified organism Disposition: Home, Self-Care Condition on Discharge: Good Instructions: DI for Acute Bronchitis Additional Instructions: use meds and see pcp for follow up Prescriptions: Benzonatate [Benzonatate 100mg cap] 100 mg PO TID #21 cap Transmission Status: Pending to [facility] # levoFLOXacin [Levaquin 500mg tab] 500 mg PO DAILY #7 tab Transmission Status: Pending to [facility] # predniSONE [Prednisone 20mg Tab] 20 mg PO BID #10 tab Transmission Status: Pending to [facility] # Referrals: Lisa Holm APRN [Primary Care Provider] - - Critical Care Critical Care Time: No Attestation: On 11/18/21, the high probability of a clinically significant, sudden or life threatening deterioration of the following system(s) required my full and direct attention, intervention and personal management. The time I documented below is in addition to time spent performing reported procedures but includes the following listed in this critical care notation. Medical Decision Making - Medical Records Medical records reviewed: Yes: I reviewed the patient's medical records. - Quan Inquiry Pt receiving controlled substance: No Vital Signs: 11/18/21 05:16 11/18/21 05:32 11/18/21 06:00 Temperature 98.1 F Temperature Source Oral Pulse Rate 90 103 H Pulse Rate [Left] 118 H Respiratory Rate 18 Blood Pressure 96/53 L 92/59 L Blood Pressure [Right Arm] 121/60 Blood Pressure Mean [Right Arm] 80 02 Sat by Pulse Oximetry 95 93 L 95 Oxygen Delivery Method Room Air Room Air Room Air 11/18/21 06:30 11/18/21 06:32 11/18/21 06:38 Temperature Temperature Source Pulse Rate 97 H 109 H 109 H Pulse Rate [Left] Respiratory Rate 16 Blood Pressure 115/67 Blood Pressure [Right Arm] Blood Pressure Mean [Right Arm] 02 Sat by Pulse Oximetry 100 Oxygen Delivery Method Room Air 11/18/21 07:00 Temperature Temperature Source Pulse Rate 106 H Pulse Rate [Left] Respiratory Rate Blood Pressure 103/60 L Blood Pressure [Right Arm] Blood Pressure Mean [Right Arm] 02 Sat by Pulse Oximetry 94 L Oxygen Delivery Method Room Air - Lab Data Lab results reviewed: Yes: I reviewed the patient's lab results. Lab Results 11/18/21 05:24: SARS-CoV-2 (PCR) Not detected, Influenza A Untype (PCR) Not detected, Influenza Type B (PCR) Not detected 11/18/21 05:31: WBC 16.1 H, RBC 4.61, Hgb 14.4, Hct 44.4, MCV 96.3, MCH 31.3 H, MCHC 32.5, RDW 13.3, Plt Count 229, MPV 8.2, Neut % (Auto) 84.4 H, Lymph % (Auto) 10.0, Qu[place] % (Auto) 3.1, Eos % (Auto) 1.6, Baso % (Auto) 0.9, Neut # (Auto) 13.6 H, Lymph # (Auto) 1.6, [place] # (Auto) 0.5, Eos # (Auto) 0.3, Baso # (Auto) 0.1, Total Counted 100, Neutrophils % (Manual) 79 H, Lymphocytes % (Manual) 14, Monocytes % (Manual) 7, Platelet Estimate Normal, RBC Morphology Normal, ESR 27 H 11/18/21 05:31: Sodium 138, Potassium 3.5, Chloride 106, Carbon Dioxide 25, Anion Gap 10.5, BUN 11, Creatinine 0.60, Estimated Creat Clear 109, Estimated GFR 111, Est GFR ( Amer) 134, Glucose 115 H, Calcium 8.8, Total Bilirubin < 0.1 L, AST 21, ALT 15, Alkaline Phosphatase 149 H, C-Reactive Protein 157.3 H, Total Protein 7.3, Albumin 3.9, Globulin 3.4 H, Albumin/Globulin Ratio 1.1, Amylase 54, Lipase 37, Procalcitonin 20.0 H Result diagrams: 11/18/21 05:31 11/18/21 05:31 Orders (Tests/Meds): ED MEDICATIONS Generic Name Dose Route Start Last Admin Trade Name Freq PRN Reason Stop Dose Admin Albuterol Sulfate 2 puff 11/18/21 06:32 11/18/21 07:31 Albuterol-Hfa 90mcg/Puff Inhaler 8gm IH 12/18/21 06:31 2 puff Q4HP PRN Administration Shortness Of Breath Benzonatate 100 mg 11/18/21 07:45 Benzonatate 100mg Capsule PO 12/18/21 07:44 ONCE SC
[2021-11-18 06:23] LABS: Erythrocyte Sedimentation Rate 27 mm/hr (0-20)
--- NOTE | 2021-11-18 07:07 | PC.NURSE ---
Pt resting in bed. Updated on expected wait times. No new needs or complaints voiced.
== END 2021-11-18 07:51 | disposition home or self-care (01) ==
PROVIDERS: Emergency Provider Emergency Medicine; PCP Nurse Practitioner Family
DX: J18.9 Pneumonia, unspecified organism (principal); Z79.899 Other long term (current) drug therapy; F41.9 Anxiety disorder, unspecified; F32.A Depression, unspecified; G43.909 Migraine, unspecified, not intractable, without status migrainosus; Z72.0 Tobacco use
CPT/HCPCS: 71046; 80053; 82150; 83690; 84145; 85007; 85025; 85651; 86140; 87070; 87205; 94640; 96365; 96367; 96375; 99284; C9803; J0696; J2405; U0003; U0005

== ENCOUNTER 2022-01-13 15:48 | Emergency (ER) | payer SELFPAY ==
--- NOTE | 2022-01-13 16:04 | XR_ITS ---
FINAL REPORT CLINICAL HISTORY: fever, cough COMPARISON: 11/18/2021 FINDINGS: Two views of the chest were obtained. The heart size and pulmonary vascularity are within normal limits. The mediastinum is normal. There is new left lung base opacity consistent with pneumonia. The right lung is clear. There is no pneumothorax. The bony thorax is intact. IMPRESSION: The left lung opacity consistent with pneumonia. Reviewed, Interpreted and Dictated by Nilton Machuca III, MD Transcribed by Krista Cleary Authenticated and [facility]
[2022-01-13 16:15] VITALS: BP 116/65; PULSE 88; RESP 20; TEMP 37.1; O2SAT 95; BMI 23.0
--- NOTE | 2022-01-13 16:31 | EXP.UTC ---
Discharge Plan Disposition Patient Disposition: Home, Self-Care Condition: Good Prescriptions Prescriptions: New azithromycin [Zithromax] 250 mg tablet 250 mg PO UD DOSE PK Qty: 6 0RF Rx Instructions: Take two (2) tablets today, then one (1) tablet days #2 thru #5 prednisone [prednisone] 20 mg tablet 20 mg PO BID 4 Days Qty: 8 0RF amoxicillin [amoxicillin] 500 mg tablet 1,000 mg PO TID 10 Days Qty: 60 0RF guaifenesin [Mucinex] 600 mg tablet extended release 12hr 600 - 1,200 mg PO BIDP PRN (Reason: Congestion) Qty: 30 0RF No Action loratadine-pseudoephedrine [Claritin-D 24 Hour] 10-240 mg tablet extended release 24 hr 1 tab PO DAILY amoxicillin-pot clavulanate 1 EACH tablet 1 tab PO BID prednisone 20 MG tablet 20 mg PO BID Qty: 10 0RF levofloxacin 500 MG tablet 500 mg PO DAILY Qty: 7 0RF benzonatate 100 MG capsule 100 mg PO TID Qty: 21 0RF Referrals Follow up/Referrals: Sedrick Griffith MD [Primary Care Provider] - See instructions Activity Restrictions/Add. Instructions Additional Instructions/Restrictions: Drink plenty of fluids. Take tylenol or ibuprofen for pain or fever. Take the medications as directed. Follow up with your regular doctor. GO TO THE ER FOR ANY WORSENING SYMPTOMS RETURN TO THE ER IF YOU HAVE ANY WORSENING SYMPTOMS. FOLLOW UP WITH YOUR PRIMARY CARE PHYSICIAN IN 24 TO 48 HOURS FOR A RECHECK. YOU WILL ALSO NEED A CHEST X-RAY IN 1 WEEK TO MAKE SURE THIS PNEUMONIA IS STARTING TO GET BETTER. FOLLOW UP WITH YOUR PRIMARY CARE PHYSICIAN FOR THAT ALSO. Clinical Impressions Clinical Impression: CAP (community acquired pneumonia) Stand Alone Forms Stand Alone Forms: Work/School Release Instructions Patient Instructions: Pneumonia-Adult Discharge ED Provider: Buddy Uriostegui [facility] [place] HPI General Stated complaint: CONGESTION Mode of Arrival: Ambulatory Source of Information: Patient Limitations: No Limitations Time Seen by Provider: 01/13/22 16:30 Description of Symptoms (Recalled from Triage Doc. by RN): PATIENT C/O FEVER AND CONGESTION SINCE TUESDAY. SHE REPORTS BEING TREATED LAST MONTH FOR PNEUMONIA AND WORRIED THAT SHE IS HAVING A RELAPSE FROM THAT HEENT Symptoms (Recalled from RN notes): Yes Resp Symptoms (Recalled from RN notes): No Skin Symptoms (Recalled from RN notes): No MS Symptoms (Recalled from RN notes): No Functional Status (Recalled from RN notes): WNL History of Present Illness Provider Complaint: She states that for the past 3 days she has had fever, chills, chest congestion, extreme fatigue. She had pneumonia about 1 month ago. She took antibiotics and she did get some better. She states her current symptoms feel just like when she had pneumonia. Related Data Home Medications Medication Instructions Recorded Confirmed loratadine-pseudoephedrine ER 10 1 tab PO DAILY allergies 08/11/21 11/18/21 mg-240 mg tablet,extended [id number] (Claritin-D 24 Hour) amoxicillin 500 mg-potassium 1 tab PO BID Infection 11/18/21 11/18/21 clavulanate 125 mg tablet Previous Rx's Medication Instructions Recorded benzonatate 100 mg capsule 100 mg PO TID #21 caps 11/18/21 levofloxacin 500 mg tablet 500 mg PO DAILY #7 tabs 11/18/21 prednisone 20 mg tablet 20 mg PO BID #10 tabs 11/18/21 amoxicillin 500 mg tablet 1,000 mg PO TID 10 days #60 tabs 01/13/22 azithromycin 250 mg tablet 250 mg PO UD DOSE PK #6 tabs 01/13/22 (Zithromax) guaifenesin 600 mg tablet, 600 - 1,200 mg PO BIDP PRN 01/13/22 extended release 12 hr (Mucinex) Congestion #30 tabs prednisone 20 mg tablet 20 mg PO BID 4 days #8 tabs 01/13/22 Allergies Allergy/AdvReac Type Severity Reaction Status Date / Time No Known Allergies Allergy Verified 08/11/21 15:54 Worker's Comp Is this a Worker's Comp case?: No PFSH PFSH Medical History Anxiety Asthma Depression Kidney stone Migraine Urinary tra
[2022-01-13 17:55] LABS: Basophils % 0.2 % (0.1-2.0); Eosinophils # 0.1 K/mm3 (0.0-0.4); Eosinophils % 0.7 % (0.1-12.0); Hematocrit 40.6 % (37.0-47.0); Hemoglobin 13.4 g/dL (12.2-16.2); Lymphocytes # 1.2 K/mm3 (0.7-4.5); Lymphocytes % 6.9 % (10-50); Mean Corpuscular HGB Conc 32.9 g/dL (31.8-35.4); Mean Corpuscular Hemoglobin 31.2 pg (27.0-31.2); Mean Corpuscular Volume 94.6 fl (81-99); Mean Platelet Volume 8.4 fl (7.4-10.4); Monocytes # 0.6 K/mm3 (0.1-1.0); Monocytes % 3.6 % (1.7-9.3); Neutrophils # 15.3 K/mm3 (1.8-7.8); Neutrophils % 88.6 % (37.0-80.0); Platelet Count 231 K/mm3 (142-424); Red Blood Count 4.29 M/mm3 (4.20-5.40); Red Cell Distribution Width 13.6 % (11.5-17.5); White Blood Count 17.2 K/mm3 (4.8-10.8)
[2022-01-13 17:56] LABS: MANUAL DIFFERENTIAL MANUAL DIFFERENTIAL (MANUAL DIFF)
[2022-01-13 18:13] LABS: Blood Urea Nitrogen 11 mg/dl (7-17); Calcium 8.4 mg/dl (8.4-10.2); Carbon Dioxide 24 mmol/L (22.0-30.0); Chloride 101 mmol/L (98-107); Creatinine Clearance Estimated 131 mL/min (50-200); Estimated Glomerular Filt Rate 137 ml/min (>60); GFR (African American) 165 ML/MIN (>60); Glucose 111 mg/dl (74-100); Sodium 135 mmol/L (136-145)
[2022-01-13 18:15] LABS: Eosinophils % 1 % (0-3); Lymphocytes % 9 % (10-50); Monocytes % 2 % (2-9); Neutrophils % 88 % (42-76); Total Cells Counted 100
[2022-01-13 18:16] LABS: Platelet Estimate Normal; RBC Morphology Normal
[2022-01-13 18:25] VITALS: BP 116/65; PULSE 88; RESP 20; TEMP 37.1; O2SAT 95
== END 2022-01-13 18:34 | disposition home or self-care (01) ==
PROVIDERS: Emergency Provider Nurse Practitioner Family; PCP Family Medicine
DX: J18.9 Pneumonia, unspecified organism (principal); R50.9 Fever, unspecified; R53.82 Chronic fatigue, unspecified; R11.0 Nausea; G43.909 Migraine, unspecified, not intractable, without status migrainosus; J45.909 Unspecified asthma, uncomplicated; F32.A Depression, unspecified; F41.9 Anxiety disorder, unspecified; F17.210 Nicotine dependence, cigarettes, uncomplicated; Z79.52 Long term (current) use of systemic steroids; Z79.899 Other long term (current) drug therapy; Z87.442 Personal history of urinary calculi
CPT/HCPCS: 71046; 80048; 85007; 85025; 96372; 99213; G0463; J0696

== ENCOUNTER 2022-05-13 07:10 | Emergency (ER) | payer SELFPAY ==
[2022-05-13] VITALS (10 sets, daily range): BP systolic 99–138; BP diastolic 53–82; PULSE 72–106; RESP 16–18; TEMP 36.7–36.8; O2SAT 95–100; BMI 22.6
--- NOTE | 2022-05-13 07:11 | ECG_ITS ---
APPROVED REPORT Exam: Resting ECG HR:95 bpm ECG Measurements Heart Rate 95 AXES LA 120 P 72 QRSd 88 QRS 86 QT 340 T 60 QTc 392 Conclusion SINUS RHYTHM WITH SINUS ARRHYTHMIA NORMAL ECG UNCONFIRMED REPORT Electronically signed by : Shoaib Ramos MD 05/13/2022 17:29:49
--- NOTE | 2022-05-13 07:17 | XR_ITS ---
FINAL REPORT CLINICAL HISTORY: Midsternal chest pain COMPARISON: 01/13/2022 FINDINGS: 2 views of the chest were obtained . The heart is normal in size. The mediastinum is within normal limits. There are mild chronic changes. Previously seen left lower lobe infiltrate and atelectasis has significantly improved. There is no pneumothorax. Osseous structures are unremarkable. IMPRESSION: No acute cardiopulmonary process. Reviewed, Interpreted and Dictated by Griffin Chan MD Transcribed by Erlinda Cárdenas Authenticated and [facility]
--- NOTE | 2022-05-13 07:30 | PC.NURSE ---
Pt transported to radiology via wheelchair.
[2022-05-13 07:44] LABS: Basophils # 0.1 K/mm3 (0-0.2); Basophils % 1.1 % (0.1-2.0); Eosinophils # 0.1 K/mm3 (0.0-0.4); Hematocrit 44.6 % (37.0-47.0); Hemoglobin 14.5 g/dL (12.2-16.2); Lymphocytes # 1.7 K/mm3 (0.7-4.5); Lymphocytes % 25.3 % (10-50); Mean Corpuscular HGB Conc 32.4 g/dL (31.8-35.4); Mean Corpuscular Hemoglobin 30.4 pg (27.0-31.2); Mean Corpuscular Volume 93.6 fl (81-99); Mean Platelet Volume 7.5 fl (7.4-10.4); Monocytes # 0.4 K/mm3 (0.1-1.0); Monocytes % 5.4 % (1.7-9.3); Neutrophils # 4.6 K/mm3 (1.8-7.8); Neutrophils % 66.2 % (37.0-80.0); Platelet Count 264 K/mm3 (142-424); Red Blood Count 4.77 M/mm3 (4.20-5.40); Red Cell Distribution Width 13.3 % (11.5-17.5); White Blood Count 6.9 K/mm3 (4.8-10.8)
[2022-05-13 07:55] LABS: Chloride 109 mmol/L (98-107); Potassium 3.9 mmoL/L (3.5-5.1); Sodium 141 mmol/L (136-145)
[2022-05-13 07:57] LABS: Alanine Aminotransferase 16 U/L (12-78); Aspartate Amino Transferase 22 U/L (14-36); Blood Urea Nitrogen 10 mg/dl (7-17); Creatinine Clearance Estimated 91 mL/min (50-200); Estimated Glomerular Filt Rate 92 ml/min (>60); GFR (African American) 112 ML/MIN (>60)
[2022-05-13 07:58] LABS: Albumin Level 4.2 g/dl (3.5-5.0); Albumin/Globulin Ratio 1.2 (1.1-1.8); Alkaline Phosphatase 142 U/L (38-126); Anion Gap 9.9 mEq/L (5-15); Bilirubin,Total 0.3 mg/dl (0.2-1.3); Calcium 8.5 mg/dl (8.4-10.2); Carbon Dioxide 26 mmol/L (22.0-30.0); Globulin 3.4 g/dL (1.3-3.2); Glucose 101 mg/dl (74-100); Total Protein,Serum 7.6 g/dl (6.3-8.2)
--- NOTE | 2022-05-13 08:03 | HMH.EDGENADL ---
Discharge Plan Disposition Patient Disposition: Home, Self-Care Condition: Good Prescriptions Prescriptions: New amoxicillin 500 mg capsule 1,000 mg PO TID Qty: 60 0RF azithromycin [Zithromax Z-Solis] 250 mg tablet See Rx Instructions PO .COMPLEX Qty: 6 0RF Rx Instructions: For 250 mg dose pack: take 500 mg today (day 1), then 250 mg for 4 days (days 2-5) Referrals Follow up/Referrals: Sedrick Griffith MD [Primary Care Provider] - See instructions Myles Mcgrath MD [Staff Physician] - See instructions Activity Restrictions/Add. Instructions Additional Instructions/Restrictions: Amoxicillin and Zithromax as prescribed for pneumonia. Additional instructions for CHEST PAIN: See cardiology, Dr. Mcgrath, as soon as possible for further evaluation. Call for appointment. Return immediately if worsening chest pain, vomiting, shortness of breath, fever, coughing of blood. Additional instructions for PNEUMONIA: Take antibiotics as prescribed. See your physician as soon as possible for further evaluation. Return immediately if you have an uncontrollable fever greater than 102 degrees, difficulty breathing or shortness of breath, persistent vomiting, or severe chest pain. Clinical Impressions Clinical Impression: Chest pain, Pneumonia Stand Alone Forms Stand Alone Forms: Work/School Release Instructions Patient Instructions: DI for Pneumonia -- Adult, DI for Chest Pain Discharge ED Provider: Andrew (ED)James General Adult HPI General Chief complaint: Chest Pain Stated complaint: CHEST PAIN Time Seen by Provider: 05/13/22 08:03 Mode of Arrival: Ambulatory Source of Information: Patient Limitations: No Limitations Description of Symptoms (Recalled from ER Triage Doc. by RN): pt states she has chest pain that started aound 5:40am, states it's a constant pressure in the center of her chest along with pain in her back and jaw, states it has eased up some now, states she has had chest pain off and on for years but hasn't followed up with anyone about it History of Present Illness HPI narrative: Patient states that she got up today had coffee and smoke a cigarette and developed sudden severe chest pain in her anterior chest that went to her jaw and her back. She felt like her blood pressure was low, she says when her blood pressure gets low if she feels cold. Later, she began feeling hot and got sweaty. She did not check her blood pressure at home. She says her heart rate was low as well. The severe pain lasted for about 15 to 30 minutes, says that now she just feels a soreness in her back. She has had similar episodes for several years, initially about once a year, but now occurring about every 6 months. She has never had an evaluation for it. The episodes usually last 15 to 30 minutes. They are not associated with shortness of breath. She has no known cardiac problems. Has never had a stress test or heart cath. She has no known chronic medical problems. She also has had a cough producing white sputum and low-grade fevers for a week. No known exposures to any illnesses. She has had pneumonia a couple of times last year. She was seen in November here for pneumonia, says that the antibiotic prescribed by Dr. Morales made her feel aggressive and she wants me to listed as an allergy or adverse reaction. She subsequently said she relapsed and was seen here in January and was treated with amoxicillin and got better. Related Data Previous Rx's Medication Instructions Recorded amoxicillin 500 mg capsule 1,000 mg PO TID #60 caps 05/13/22 azithromycin 250 mg tablet See Rx Instructions PO .COMPLEX #6 05/13/22 (Zithromax Z-Solsi) tabs Allergies Allergy/AdvReac Type Severity Reaction Status Date / Time levaquin AdvReac Mild Agitated Uncoded 05/13/22 08:18 [facility] Disclaimer: The information contained in this section may have been updated after the patient was seen, as this information can be up
--- NOTE | 2022-05-13 08:06 | PC.NURSE ---
provided pt with warm blanket.
--- NOTE | 2022-05-13 08:06 | PC.NURSE ---
ki kuo at bedside.
[2022-05-13 08:11] LABS: Troponin I < 0.01 ng/ml (0.00-0.034)
[2022-05-13 08:30] LABS: D-Dimer 0.54 ug/mL (0.0-0.5)
--- NOTE | 2022-05-13 08:45 | PC.NURSE ---
Pt being taken to CT.
[2022-05-13 08:55] LABS: Coronavirus 19, PCR Not Detected (NotDetected); Influenza A, PCR Not Detected (NotDetected); Influenza B, PCR Not Detected (NotDetected)
--- NOTE | 2022-05-13 08:59 | PC.NURSE ---
Notified vascular of ECHO order
--- NOTE | 2022-05-13 09:02 | CA_ITS ---
APPROVED REPORT EXAM: Comprehensive 2D, Doppler, and color-flow Echocardiogram [employer] Operator: Jenifer Menjivar RVT Ht: 5 ft 1 in Wt: 123lbs BSA: 1.54 BP: 130/62 mmHg Indications: CP,SMOKER 2D Dimensions LVOT 1.96 cm (M/F) 1.5-2.5 LA Volume 18.10 mL LA Volume Index 11.75 mL/m2 (M/F) 16-34 M-Mode Dimensions RVDd 2.24 cm (0.9-2.6) LA Diam 2.35 cm (1.9-4.0) LVDd 4.25 cm (3.5-5.7) Ao Diam 3.16 cm (2.0-3.7) LVDs 3.15 cm (3.5-5.7) IVSd 0.33 cm (0.6-1.1) PWd 0.37 cm (0.6-1.1) EF (Teich) 51.20% FS 25.90% EDV (Teich) 80.80 mL TAPSE 1.94 (<1.7) ESV (Teich) 39.40 mL LV Diastology E Decel Time 150.00 (160-240 msec) E/A Ratio 1.1 MED E' 9.50 (< 7 cm/sec) E'/MED E' Ratio 8.32 (>14) LAT E' 12.60 (<10 cm/sec) E/LAT E' Ratio 6.27 (>14) Aortic Valve AO Peak GR. 5.10 mmHg Mitral Valve MV E Max Abner. 79.00 (40-130 cm/s) MV A Velocity 73.00 (40-130 cm/s) E/A Ratio 1.09 MV Decel. Time 150.00 (160-240 ms) MV PHT 44.00 ms Pulmonary Valve PV Peak Velocity 67.00 (50-150 cm/s) Tricuspid Valve TR P. Velocity 193.00 cm/s RAP Estimate 10.00 mmHg RVSP 25.00 mmHg Left Ventricle Left atrium is normal size, left ventricle is normal size, estimated ejection fraction 45% with no regional wall motion abnormality, diastolic parameters are within normal range. Right Ventricle Right atrium and right ventricular normal size and contractility. Aortic Valve Aortic valve is grossly normal there is no aortic stenosis aortic insufficiency. Mitral Valve Mitral valve is grossly normal, there is trace mitral regurgitation. Tricuspid Valve Tricuspid valve grossly normal, there is trace tricuspid regurgitation, tricuspid regurgitation jet versus inadequate for calculation of the right ventricular systolic pressure. Pulmonic Valve Pulmonic valve is poorly visualized. Great Vessels Aortic root is normal size. Inferior vena cava is poorly visualized. Pericardium No significant pericardial effusion noted. Conclusion 1. Normal left ventricular size preserved left ventricular systolic function, estimated ejection fraction 55% with no regional wall motion abnormality. Diastolic parameters are within normal range. 2. Trace mitral and tricuspid regurgitation. 3. No significant pericardial effusion noted. 4. Inferior vena cava is poorly visualized. Electronically signed by : Abhinav Smith MD 05/14/2022 17:47:14
[2022-05-13 09:16] LABS: Lactic Acid 0.8 mmol/L (0.7-2.1)
--- NOTE | 2022-05-13 10:29 | PC.NURSE ---
Rounded on pt and updated her that we would be drawing a 2nd troponin shortly. Pt agreeable with POC. Asked patient if she needed anything will she waited. Pt advised she was doing ok and had no new needs.
--- NOTE | 2022-05-13 10:39 | PC.NURSE ---
pt aware that we are waiting on 2nd troponin test result, no other needs at this time. pt talking on cell phone
[2022-05-13 10:48] LABS: Troponin I < 0.01 ng/ml (0.00-0.034)
--- NOTE | 2022-05-13 11:12 | PC.NURSE ---
Rounded on pt. Resting comfortably in the bed at this time. Vitals cycling. No questions or concerns at this time.
== END 2022-05-13 11:33 | disposition home or self-care (01) ==
PROVIDERS: Emergency Medicine; Emergency Provider Emergency Medicine; PCP Family Medicine
DX: R07.89 Other chest pain (principal); J18.9 Pneumonia, unspecified organism; F41.9 Anxiety disorder, unspecified; J45.909 Unspecified asthma, uncomplicated; G43.909 Migraine, unspecified, not intractable, without status migrainosus; Z87.440 Personal history of urinary (tract) infections; Z87.442 Personal history of urinary calculi; F17.210 Nicotine dependence, cigarettes, uncomplicated; Z98.51 Tubal ligation status; Z20.822 Contact with and (suspected) exposure to COVID-19
CPT/HCPCS: 71046; 80053; 83605; 84484; 85025; 85378; 87040; 93005; 93306; 99285; C9803; U0003; U0005

== ENCOUNTER 2022-10-20 07:53 | Emergency (ER) | payer SELFPAY ==
[2022-10-20 07:59] VITALS: BP 127/74
--- NOTE | 2022-10-20 07:59 | XR_ITS ---
FINAL REPORT CLINICAL HISTORY: dyspnea COMPARISON: 05/13/2022 FINDINGS: A portable view of the chest was obtained. Cardiac and mediastinal silhouettes are within normal limits. The lungs are clear. There is no pleural effusion or pneumothorax. IMPRESSION: No acute process on this portable exam. Reviewed, Interpreted and Dictated by Kristie Andre MD Transcribed by Terese Sandoval Authenticated and [facility]
[2022-10-20 08:01] VITALS: BP 127/74; PULSE 111; RESP 18; TEMP 36.4; O2SAT 97; BMI 22.8
--- NOTE | 2022-10-20 08:01 | HMH.EDGENADL ---
Discharge Plan Disposition Patient Disposition: Home, Self-Care Prescriptions Prescriptions: New amoxicillin 500 mg capsule 1,000 mg PO TID 5 Days Qty: 30 0RF azithromycin 250 mg tablet See Rx Instructions .ROUTE .COMPLEX Qty: 6 0RF Rx Instructions: For 250 mg dose pack: take 500 mg today (day 1), then 250 mg for 4 days (days 2-5) prednisone 50 mg tablet 50 mg PO DAILY 5 Days Qty: 5 0RF Rx Instructions: Please begin 1 day after ED visit albuterol sulfate 90 mcg/actuation HFA aerosol inhaler 4 inh inhalation Q4H PRN (Reason: shortness of breath or wheezing) Qty: 8.5 0RF Rx Instructions: 4 puffs every 4 hours for 48 hours then as needed for shortness of breath or wheezing following No Action amoxicillin 500 mg capsule 1,000 mg PO TID Qty: 60 0RF azithromycin [Zithromax Z-Solis] 250 mg tablet See Rx Instructions PO .COMPLEX Qty: 6 0RF Rx Instructions: For 250 mg dose pack: take 500 mg today (day 1), then 250 mg for 4 days (days 2-5) Referrals Follow up/Referrals: Sedrick Griffith MD [Primary Care Provider] - See instructions Activity Restrictions/Add. Instructions Additional Instructions/Restrictions: You are diagnosed with an upper respiratory infection and a superimposed asthma exacerbation today. This is almost certainly viral. Based on your specific request for antibiotics I did prescribe for you amoxicillin and azithromycin in the event that you are not improving in 1 to 2 weeks to prevent you from coming back to the doctor. However right now there is no indication that any antibacterial medications are needed. Your flu and COVID test were both negative. Please return to the emergency part with any worsening symptoms Clinical Impressions Clinical Impression: Asthma exacerbation, URI (upper respiratory infection) Discharge ED Provider: Roe Saleem General Adult HPI General Chief complaint: Shortness of Breath/Dyspnea Stated complaint: SOA congestion drainage Time Seen by Provider: 10/20/22 07:55 History of Present Illness HPI narrative: Patient is a 42-year-old female with a history of chronic smoking and asthma who presents today with 1 day history of cough wheezing sputum production and fever. She states her temperature was 102 at home she took a gram of Tylenol just prior to arrival. States she is very mildly short of breath. She has an albuterol inhaler that she is been taken at home without any significant improvement. She also states she has a history of recurrent pneumonia is concerned she may have that again. Related Data Previous Rx's Medication Instructions Recorded amoxicillin 500 mg capsule 1,000 mg PO TID #60 caps 05/13/22 azithromycin 250 mg tablet See Rx Instructions PO .COMPLEX #6 05/13/22 (Zithromax Z-Solis) tabs albuterol sulfate 90 mcg/actuation 4 inh inhalation Q4H PRN shortness 10/20/22 aerosol inhaler of breath or wheezing #8.5 grams amoxicillin 500 mg capsule 1,000 mg PO TID 5 days #30 caps 10/20/22 azithromycin 250 mg tablet See Rx Instructions PO .COMPLEX #6 10/20/22 tabs prednisone 50 mg tablet 50 mg PO DAILY 5 days #5 tabs 10/20/22 Allergies Allergy/AdvReac Type Severity Reaction Status Date / Time levaquin AdvReac Mild Agitated Uncoded 05/13/22 08:18 PFSH PFS Disclaimer: The information contained in this section may have been updated after the patient was seen, as this information can be updated by other users. Medical History Anxiety Asthma Depression Kidney stone Migraine Urinary tract infection Surgical History History of section History of dilation and curettage History of tubal ligation Social History Smoking Status: Current every day smoker tobacco type: cigarettes packs per day: 1 alcohol intake: never substance use type: denies use
--- NOTE | 2022-10-20 08:03 | PC.NURSE ---
naye morris initiated
[2022-10-20 08:09] LABS: Coronavirus 19, PCR Not Detected (NotDetected); Influenza A, PCR Not Detected (NotDetected); Influenza B, PCR Not Detected (NotDetected)
--- NOTE | 2022-10-20 08:21 | PC.NURSE ---
pt is sitting up in the bed with the call light at BS.
[2022-10-20 08:30] VITALS: BP 103/68
[2022-10-20 09:00] VITALS: BP 93/66
[2022-10-20 09:25] VITALS: BP 109/71
[2022-10-20 09:26] VITALS: BP 109/71; PULSE 104; RESP 16; TEMP 36.7
== END 2022-10-20 09:28 | disposition home or self-care (01) ==
PROVIDERS: Student in an Organized Health Care Education/Training Program; Emergency Provider Emergency Medicine; PCP Family Medicine
DX: J45.901 Unspecified asthma with (acute) exacerbation (principal); J06.9 Acute upper respiratory infection, unspecified; F41.9 Anxiety disorder, unspecified; F32.A Depression, unspecified; F17.210 Nicotine dependence, cigarettes, uncomplicated
CPT/HCPCS: 71045; 87636; 99283

== ENCOUNTER 2022-12-21 09:02 | Emergency (ER) | payer BC, SELFPAY ==
[2022-12-21 09:17] VITALS: BP 106/66; PULSE 101; RESP 18; TEMP 36.9; O2SAT 98; BMI 23.8
--- NOTE | 2022-12-21 09:17 | EXP.UTC ---
Discharge Plan Disposition Patient Disposition: Home, Self-Care Condition: Good Prescriptions Prescriptions: New azithromycin [Zithromax] 250 mg tablet 250 mg PO UD DOSE PK Qty: 6 0RF Rx Instructions: Take two (2) tablets today, then one (1) tablet days #2 thru #5 amoxicillin [amoxicillin] 875 mg tablet 875 mg PO Q12H Qty: 20 0RF methylprednisolone 4 mg Tablets,Dose Pack 4 mg PO DIRECTED Qty: 21 0RF albuterol sulfate [Ventolin HFA] 90 mcg/actuation HFA aerosol inhaler 2 puff inhalation Q6H PRN (Reason: shortness of breath or wheezing) Qty: 6.7 0RF benzonatate [benzonatate] 100 mg capsule 100 mg PO TIDP PRN (Reason: Cough) Qty: 30 0RF Referrals Follow up/Referrals: Sedrick Griffith MD [Primary Care Provider] - See instructions Activity Restrictions/Add. Instructions Additional Instructions/Restrictions: Drink plenty of fluids. Take tylenol or ibuprofen for pain or fever. Take the medications as directed. Follow up with your regular doctor. GO TO THE ER FOR ANY WORSENING SYMPTOMS Clinical Impressions Clinical Impression: Sinusitis, Asthma exacerbation Stand Alone Forms Stand Alone Forms: Work/School Release Instructions Patient Instructions: Sinusitis, Asthma -- Adult, DI for Asthma -- Adult, DI for Sinusitis Discharge ED Provider: Buddy Uriostegui [facility] General Stated complaint: sore throat, sinus pressure and drainage Time Seen by Provider: 12/21/22 09:17 History of Present Illness Provider Complaint: She states that for the past 2 days she has had worsening chest and sinus congestion. She has a history of asthma. Related Data Previous Rx's Medication Instructions Recorded albuterol sulfate 90 mcg/actuation 2 puff inhalation Q6H PRN 12/21/22 aerosol inhaler (Ventolin HFA) shortness of breath or wheezing #6.7 grams amoxicillin 875 mg tablet 875 mg PO Q12H #20 tabs 12/21/22 azithromycin 250 mg tablet 250 mg PO UD DOSE PK #6 tabs 12/21/22 (Zithromax) benzonatate 100 mg capsule 100 mg PO TIDP PRN Cough #30 caps 12/21/22 methylprednisolone 4 mg tablets in 4 mg PO DIRECTED #21 tabs 12/21/22 a dose pack Allergies Allergy/AdvReac Type Severity Reaction Status Date / Time levofloxacin [From Levaquin] AdvReac Agitated Verified 11/22/22 09:41 [facility] Disclaimer: The information contained in this section may have been updated after the patient was seen, as this information can be updated by other users. Medical History Anxiety Asthma Depression Kidney stone Migraine Urinary tract infection Surgical History History of section History of dilation and curettage History of tubal ligation Social History Smoking Status: Current every day smoker tobacco type: cigarettes packs per day: 1 alcohol intake: never substance use type: denies use current occupational status: unemployed Travel in the last 8 weeks: None household members: spouse housing: house caffeine: Yes ROS Obtained: Yes All systems reviewed & no additional complaints except as documented Constitutional Constitutional: Reports chills and Denies fever(s) Eyes Eyes: Denies eye discharge ENT Ears, Nose, Mouth, and Throat: Reports as per HPI Cardiovascular Cardiovascular: Denies chest pain Respiratory Respiratory: Denies shortness of breath, Reports chest congestion, Reports cough, Denies stridor and Reports wheezing Gastrointestinal Gastrointestingal: Reports nausea; Denies abdominal pain, constipation, cramping, diarrhea or vomiting Musculoskeletal Musculoskeletal: Denies arthralgias Integumentary/Breasts Skin/Breast: Denies rash Neurologic Neurologic: Denies paresthesias Allergic/Immunologic Allergic/Immunologic: Reports wheezing Physical Exam General General appearance: alert and in no appa
[2022-12-21 10:02] VITALS: BP 106/66; PULSE 101; RESP 18; TEMP 36.6; O2SAT 99
== END 2022-12-21 10:05 | disposition home or self-care (01) ==
PROVIDERS: Emergency Provider Nurse Practitioner Family; PCP Family Medicine
DX: J45.901 Unspecified asthma with (acute) exacerbation (principal); J01.90 Acute sinusitis, unspecified; F17.210 Nicotine dependence, cigarettes, uncomplicated; F41.9 Anxiety disorder, unspecified; F32.A Depression, unspecified
CPT/HCPCS: 87635; 99212; 99214; G0463

== ENCOUNTER 2023-08-17 15:06 | Emergency (ER) | payer BC, SELFPAY ==
[2023-08-17 15:55] VITALS: BP 110/74; PULSE 92; RESP 20; TEMP 37.3; O2SAT 98; BMI 23.6
--- NOTE | 2023-08-17 16:10 | EXP.UTC ---
Discharge Plan Disposition Patient Disposition: Home, Self-Care Condition: Good Prescriptions Prescriptions: New amoxicillin 500 mg capsule 500 mg PO TID 10 Days Qty: 30 0RF zvoekdjz-gkiijnnhe-HX 3.5-10,000-1 mg/mL-unit/mL-% drops,suspension 4 drp otic (ear) Q8H 7 Days Qty: 10 0RF Rx Instructions: in left ear as prescribed No Action terconazole 0.8 % cream 1 appful vaginal HS 3 Days Qty: 20 2RF fluconazole 150 mg tablet 150 mg PO ONCE Qty: 1 0RF metronidazole 500 mg tablet 500 mg PO BID 7 Days Qty: 14 0RF Referrals Follow up/Referrals: Sedrick Griffith MD [Primary Care Provider] - See instructions Activity Restrictions/Add. Instructions Additional Instructions/Restrictions: Take medication as prescribed Use drops in left ear as prescribed Over the counter Motrin and/or Tylenol as directed for fever or pain Follow up with your Family Doctor if no improvement or any worsening of symptoms Clinical Impressions Clinical Impression: Otitis media, Otitis externa Instructions Patient Instructions: Middle Ear Infection, DI for Otitis Externa Discharge ED Provider: Tessa Knapp [facility] [place] HPI General Stated complaint: ear ache Mode of Arrival: Ambulatory Source of Information: Patient Limitations: No Limitations Time Seen by Provider: 08/17/23 16:10 Description of Symptoms (Recalled from Triage Doc. by RN): PATIENT C/O LEFT EAR PAIN X 2 WEEKS HEENT Symptoms (Recalled from RN notes): Yes Resp Symptoms (Recalled from RN notes): No Skin Symptoms (Recalled from RN notes): No MS Symptoms (Recalled from RN notes): No Functional Status (Recalled from RN notes): WNL History of Present Illness Provider Complaint: Patient states that she has been having pain in her left ear for about 2 weeks States it has continued to get worse and now it is sore on the outside too an her throat feels dry and scratchy so she came in to get it checked Related Data Previous Rx's Medication Instructions Recorded fluconazole 150 mg tablet 150 mg PO ONCE #1 tab 06/07/23 terconazole 0.8 % vaginal cream 1 appful vaginal HS 3 days #20 06/07/23 grams metronidazole 500 mg tablet 500 mg PO BID 7 days #14 tabs 06/09/23 amoxicillin 500 mg capsule 500 mg PO TID 10 days #30 caps 08/17/23 lcupiywi-qkztziebm-okpxxtxej 3.5 4 drp otic (ear) Q8H 7 days #10 mL 08/17/23 mg-10,000 unit/mL-1 % ear drops,susp Allergies Allergy/AdvReac Type Severity Reaction Status Date / Time levofloxacin [From Levaquin] AdvReac Agitated Verified 06/07/23 09:54 Worker's Comp Is this a Worker's Comp case?: No [facility] Disclaimer: The information contained in this section may have been updated after the patient was seen, as this information can be updated by other users. Medical History Anxiety Asthma Depression Kidney stone Migraine Urinary tract infection Surgical History History of section History of dilation and curettage History of tubal ligation Family History Other No significant family history Social History Smoking Status: Current every day smoker tobacco type: cigarettes packs per day: 1 alcohol intake: never substance use type: denies use current occupational status: unemployed Travel in the last 8 weeks: None household members: spouse housing: house caffeine: Yes ROS Obtained: Yes All systems reviewed & no additional complaints except as documented and Yes Systems reviewed as appropriate & no additional complaints except as documented Constitutional Constitutional: Reports system reviewed and no additional complaints, except as documented and Reports as per HPI ENT Ears, Nose, Mouth, and Throat: Reports system reviewed and no additional complaints, except as documented, Reports as per HPI, Reports otalgia and Reports sore throat Cardiovascular Cardiovascular: Reports system reviewed and no additional complaints, except as documented and Reports as per HPI Respiratory Respiratory: Reports system reviewed and no additional complaints, except as documented and Reports as per HPI Gastrointestinal Gastrointestingal: Reports system reviewed and no additional complaints, except as documented and as per HPI Physical Exam General General appearance: alert and in no apparent distress ENT ENT exam: Present mucous membranes moist Expanded ENT Exam External ear exam: Present pain with movement (left) and external tenderness (left) TM/Canal exam: Left TM: erythema and loss of landmarks Throat exam: Present tonsillar erythema Respiratory Respiratory exam: Present normal lung sounds bilaterally; Absent respiratory distress or wheezes Cardiovascular Cardiovascular exam: Present regular rate and bradycardia Abdominal Exam Abdominal exam: Present soft and normal bowel sounds; Absent distention or tenderness Neurological Exam Neurological exam: Present alert, oriented X3 and normal gait Medical Decision Making Quan Inquiry Pt receiving controlled substance: No Quan was queried for this patient: No Vital Signs: 08/17/23 15:55 Temperature 99.1 F Temperature Source Oral Pulse Rate [Left Brachial] 92 H Respiratory Rate 20 Blood Pressure [Left Arm] 110/74 Blood Pressure Mean [Left Arm] 86 Blood Pressure Source [Left Arm] Automatic Cuff Blood Pressure Position [Left Arm] Sitting 02 Sat by Pulse Oximetry 98 Oxygen Delivery Method Room Air
[2023-08-17 16:25] VITALS: BP 110/74; PULSE 92; RESP 20; TEMP 37.3; O2SAT 98
== END 2023-08-17 16:30 | disposition home or self-care (01) ==
PROVIDERS: Emergency Provider Nurse Practitioner; PCP Family Medicine
DX: H66.92 Otitis media, unspecified, left ear (principal); H60.92 Unspecified otitis externa, left ear; R07.0 Pain in throat; F17.210 Nicotine dependence, cigarettes, uncomplicated
CPT/HCPCS: 99212; 99214; G0463

== ENCOUNTER 2023-09-26 09:20 | Emergency (ER) | payer SELFPAY ==
[2023-09-26 10:00] VITALS: BP 145/78; PULSE 108; RESP 18; TEMP 36.9; O2SAT 99; BMI 22.4
--- NOTE | 2023-09-26 10:48 | ED_ITS ---
Discharge Plan Disposition Patient Disposition: Home, Self-Care Condition: Good Prescriptions Prescriptions: New loratadine 10 mg tablet 10 mg PO DAILY Qty: 30 0RF Referrals Follow up/Referrals: Sedrick Griffith MD [Primary Care Provider] - See instructions Activity Restrictions/Add. Instructions Additional Instructions/Restrictions: Take medication as prescribed. Increase fluids and rest. Follow up with PCP if symptoms persist or worsen. Clinical Impressions Clinical Impression: Sinusitis Stand Alone Forms Stand Alone Forms: Work/School Release Instructions Patient Instructions: DI for Sinusitis, Sinus Headache Discharge ED Provider: Stefanie Harmon [facility] [place] General Stated complaint: sinus pressure, migraine Mode of Arrival: Ambulatory Source of Information: Patient Limitations: No Limitations Time Seen by Provider: 09/26/23 10:48 Description of Symptoms (Recalled from Triage Doc. by RN): Pt's symptoms are sinus pressure, and eyes are swollen and hurting. HEENT Symptoms (Recalled from RN notes): Yes Resp Symptoms (Recalled from RN notes): No Skin Symptoms (Recalled from RN notes): No MS Symptoms (Recalled from RN notes): No Functional Status (Recalled from RN notes): n/a History of Present Illness Provider Complaint: Pt reports a long history with allergies, but has not been taking her allergy medication. She reports that she started having allergy issues with facial swelling, eyes watering, and frontal headache. She reports taking Tylenol yesterday. Related Data Previous Rx's Medication Instructions Recorded loratadine 10 mg tablet 10 mg PO DAILY #30 tabs 09/26/23 Allergies Allergy/AdvReac Type Severity Reaction Status Date / Time levofloxacin [From Levaquin] AdvReac Agitated Verified 09/26/23 10:19 Worker's Comp Is this a Worker's Comp case?: No [facility] Disclaimer: The information contained in this section may have been updated after the patient was seen, as this information can be updated by other users. Medical History Anxiety Asthma Depression Kidney stone Migraine Urinary tract infection Surgical History History of section History of dilation and curettage History of tubal ligation Family History Other No significant family history Social History Smoking Status: Current every day smoker tobacco type: cigarettes packs per day: 1 alcohol intake: never substance use type: denies use current occupational status: unemployed Travel in the last 8 weeks: None household members: spouse housing: house caffeine: Yes ROS Obtained: Yes All systems reviewed & no additional complaints except as documented Constitutional Constitutional: Reports system reviewed and no additional complaints, except as documented and Reports headache(s) Eyes Eyes: Reports system reviewed and no additional complaints, except as documented, Reports eye discharge and Reports sensitivity to light ENT Ears, Nose, Mouth, and Throat: Reports headache(s), Reports nasal congestion and Reports nasal discharge Cardiovascular Cardiovascular: Reports system reviewed and no additional complaints, except as documented Respiratory Respiratory: Reports system reviewed and no additional complaints, except as documented and Reports cough Gastrointestinal Gastrointestingal: Reports system reviewed and no additional complaints, except as documented Genitourinary Female Genitourinary: Reports system reviewed and no additional complaints, except as documented Musculoskeletal Musculoskeletal: Reports system reviewed and no additional complaints, except as documented Integumentary/Breasts Skin/Breast: Reports system reviewed and no additional complaints, except as documented Neurologic Neurologic: Reports system reviewed and no additional complaints, except as documented and Reports headache(s) Endocrine Endocrine: Reports system reviewed and no additional complaints, except as documented Hematologic/Lymphatic Henatologic/Lymphatic: Reports system reviewed and no additional complaints, except as documented Allergic/Immunologic Allergic/Immunologic: Reports system reviewed and no additional complaints, except as documented Physical Exam General General appearance: alert Comment: appears in pain Head Head exam: atraumatic and normocephalic Eye Eye exam: Present normal appearance Expanded ENT Exam External ear exam: Present normal external inspection Nose exam: Present sinus tenderness (pansinusitis) Nasal speculum exam: Bilateral: other (clear drainage) Mouth exam: Present normal external inspection Teeth exam: Present normal inspection Throat exam: Present normal inspection Neck Neck exam: Present normal inspection; Absent lymphadenopathy Chest Chest inspection: Present normal inspection and symmetric chest wall rise Respiratory Respiratory exam: Present normal lung sounds bilaterally Cardiovascular Cardiovascular exam: Present regular rate, normal rhythm and normal heart sounds Abdominal Exam Abdominal exam: Present soft and normal bowel sounds Extremities Exam Extremities exam: Present normal inspection Back Exam Back exam: Present normal inspection Neurological Exam Neurological exam: Present alert and oriented X3 Psychiatric Psychiatric exam: Present normal affect and normal mood Skin Skin exam: Present warm, dry and intact Lymphatic Lymphatic Findings: no adenopathy Medical Decision Making Quan Inquiry Pt receiving controlled substance: No Quan was queried for this patient: No Vital Signs: 09/26/23 10:00 Temperature 98.4 F Temperature Source Oral Pulse Rate [Right Radial] 108 H Respiratory Rate 18 Blood Pressure [Right Arm] 145/78 H Blood Pressure Mean [Right Arm] 100 Blood Pressure Source [Right Arm] Automatic Cuff Blood Pressure Position [Right Arm] Sitting 02 Sat by Pulse Oximetry 99 Oxygen Delivery Method Room Air
[2023-09-26] MEDS: DEXAMETHASONE 4MG/ML 1ML VIAL 4 MG IM (10:59)
--- NOTE | 2023-09-26 11:58 | ED_ITS ---
Discharge Plan Disposition Patient Disposition: Home, Self-Care Condition: Good Prescriptions Prescriptions: New loratadine 10 mg tablet 10 mg PO DAILY Qty: 30 0RF Referrals Follow up/Referrals: Sedrick Griffith MD [Primary Care Provider] - See instructions Activity Restrictions/Add. Instructions Additional Instructions/Restrictions: Take medication as prescribed. Increase fluids and rest. Follow up with PCP if symptoms persist or worsen. Clinical Impressions Clinical Impression: Sinusitis Qualifiers: Sinusitis location: pansinusitis Chronicity: acute Recurrence: not specified as recurrent Qualified Code(s): J01.40 - Acute pansinusitis, unspecified Stand Alone Forms Stand Alone Forms: Work/School Release Instructions Patient Instructions: Sinus Headache, DI for Sinusitis Discharge ED Provider: Stefanie Harmon [facility] General Stated complaint: sinus pressure, migraine Mode of Arrival: Ambulatory Source of Information: Patient Limitations: No Limitations Time Seen by Provider: 09/26/23 10:48 Description of Symptoms (Recalled from Triage Doc. by RN): Pt's symptoms are sinus pressure, and eyes are swollen and hurting. HEENT Symptoms (Recalled from RN notes): Yes Resp Symptoms (Recalled from RN notes): No Skin Symptoms (Recalled from RN notes): No MS Symptoms (Recalled from RN notes): No Functional Status (Recalled from RN notes): n/a Related Data Previous Rx's Medication Instructions Recorded loratadine 10 mg tablet 10 mg PO DAILY #30 tabs 09/26/23 Allergies Allergy/AdvReac Type Severity Reaction Status Date / Time levofloxacin [From Levaquin] AdvReac Agitated Verified 09/26/23 10:19 Worker's Comp Is this a Worker's Comp case?: No [facility] Disclaimer: The information contained in this section may have been updated after the patient was seen, as this information can be updated by other users. Medical History Anxiety Asthma Depression Kidney stone Migraine Urinary tract infection Surgical History History of section History of dilation and curettage History of tubal ligation Family History Other No significant family history Social History Smoking Status: Current every day smoker tobacco type: cigarettes packs per day: 1 alcohol intake: never substance use type: denies use current occupational status: unemployed Travel in the last 8 weeks: None household members: spouse housing: house caffeine: Yes ROS Obtained: Yes All systems reviewed & no additional complaints except as documented Constitutional Constitutional: Reports system reviewed and no additional complaints, except as documented and Reports headache(s) Eyes Eyes: Reports system reviewed and no additional complaints, except as documented, Reports eye discharge and Reports sensitivity to light ENT Ears, Nose, Mouth, and Throat: Reports system reviewed and no additional co mplaints, except as documented, Reports headache(s), Reports nasal congestion, Reports nasal discharge, Reports sinus pain and Reports sinus pressure Cardiovascular Cardiovascular: Reports system reviewed and no additional complaints, except as documented Respiratory Respiratory: Reports system reviewed and no additional complaints, except as documented Gastrointestinal Gastrointestingal: Reports system reviewed and no additional complaints, except as documented Genitourinary Female Genitourinary: Reports system reviewed and no additional complaints, except as documented Musculoskeletal Musculoskeletal: Reports system reviewed and no additional complaints, except as documented Integumentary/Breasts Skin/Breast: Reports system reviewed and no additional complaints, except as documented Neurologic Neurologic: Reports system reviewed and no additional complaints, except as documented and Reports headache(s) Endocrine Endocrine: Reports system reviewed and no additional complaints, except as docum ented Hematologic/Lymphatic Henatologic/Lymphatic: Reports system reviewed and no additional complaints, except as documented Allergic/Immunologic Allergic/Immunologic: Reports system reviewed and no additional complaints, except as documented Physical Exam General General appearance: alert Head Head exam: atraumatic and normocephalic Eye Eye exam: Present normal appearance, PERRL and EOMI ENT ENT exam: Present normal oropharynx and mucous membranes moist Expanded ENT Exam Nose exam: Present sinus tenderness Nasal speculum exam: Bilateral: other (clear drainage) Mouth exam: Present normal external inspection Teeth exam: Present normal inspection Throat exam: Present normal inspection Neck Neck exam: Present normal inspection Chest Chest inspection: Present normal inspection and symmetric chest wall rise Respiratory Respiratory exam: Present normal lung sounds bilaterally Cardiovascular Cardiovascular exam: Present regular rate, normal rhythm and normal heart sounds Abdominal Exam Abdominal exam: Present soft and normal bowel sounds Extremities Exam Extremities exam: Present normal inspection Back Exam Back exam: Present normal inspection Neurological Exam Neurological exam: Present alert and oriented X3 Psychiatric Psychiatric exam: Present normal affect and normal mood Skin Skin exam: Present warm, dry and intact Lymphatic Lymphatic Findings: no adenopathy Medical Decision Making Quan Inquiry Pt receiving controlled substance: No Quan was queried for this patient: No Vital Signs: 09/26/23 10:00 Temperature 98.4 F Temperature Source Oral Pulse Rate [Right Radial] 108 H Respiratory Rate 18 Blood Pressure [Right Arm] 145/78 H Blood Pressure Mean [Right Arm] 100 Blood Pressure Source [Right Arm] Automatic Cuff Blood Pressure Position [Right Arm] Sitting 02 Sat by Pulse Oximetry 99 Oxygen Delivery Method Room Air Orders (Tests/Meds): ED MEDICATIONS Discontinued Medications Generic Name Dose Route Start Last Admin Trade Name Freq PRN Reason Stop Dose Admin Dexamethasone Sodium Phosphate 4 mg 09/26/23 10:55 09/26/23 10:59 Dexamethasone 4mg/Ml 1ml Vial IM 09/26/23 10:56 4 mg ONCE ONE Administration
[2023-09-26 12:05] VITALS: BP 152/81; PULSE 83; RESP 18; TEMP 36.8; O2SAT 96
== END 2023-09-26 12:05 | disposition home or self-care (01) ==
PROVIDERS: Emergency Provider Nurse Practitioner Family; PCP Family Medicine
DX: J01.40 Acute pansinusitis, unspecified (principal); R51.9 Headache, unspecified; F17.210 Nicotine dependence, cigarettes, uncomplicated
CPT/HCPCS: 96372; 99212; 99214; G0463; J1100

== ENCOUNTER 2023-11-26 09:26 | Emergency (ER) | payer OTHER, SELFPAY ==
[2023-11-26 09:35] VITALS: BP 114/64; PULSE 97; RESP 19; TEMP 36.7; O2SAT 98; BMI 22.6
--- NOTE | 2023-11-26 09:46 | EXP.UTC ---
Discharge Plan Disposition Patient Disposition: Home, Self-Care Condition: Good Prescriptions Prescriptions: No Action loratadine 10 mg tablet 10 mg PO DAILY Qty: 30 0RF Referrals Follow up/Referrals: Sedrick Griffith MD [Primary Care Provider] - See instructions Clinical Impressions Clinical Impression: Acute allergic conjunctivitis of both eyes Instructions Patient Instructions: DI for Allergic Rhinitis Print Language Print Language: Latvian Discharge ED Provider[place] [facility] [place] General Stated complaint: poss sinus infection in eyes Mode of Arrival: Ambulatory Source of Information: Patient Limitations: No Limitations Time Seen by Provider: 11/26/23 09:52 Description of Symptoms (Recalled from Triage Doc. by RN): PATIENT C/O SINUS PRESSURE BEHIND EYES THAT STARTED YESTERDAY HEENT Symptoms (Recalled from RN notes): Yes Resp Symptoms (Recalled from RN notes): No Skin Symptoms (Recalled from RN notes): No MS Symptoms (Recalled from RN notes): No Functional Status (Recalled from RN notes): WNL History of Present Illness Provider Complaint: Pain and pressure behind both eyes. Eyes are watering. No fever. Onset (ago): day(s) (1) Relieving factors: none Exacerbating factors: none Associated symptoms: denies other symptoms Treatments prior to arrival: none Related Data Previous Rx's ?Medication ?Instructions ?Recorded loratadine 10 mg tablet 10 mg PO DAILY #30 tabs 09/26/23 Allergies Allergy/AdvReac Type Severity Reaction Status Date / Time levofloxacin [From Levaquin] AdvReac Agitated Verified 09/26/23 10:19 Worker's Comp Is this a Worker's Comp case?: No [facility] Disclaimer: The information contained in this section may have been updated after the patient was seen, as this information can be updated by other users. Medical History Anxiety Asthma Depression Kidney stone Migraine Urinary tract infection Surgical History History of section History of dilation and curettage History of tubal ligation Family History Other No significant family history Social History Smoking Status: Current every day smoker tobacco type: cigarettes packs per day: 1 alcohol intake: never substance use type: denies use current occupational status: unemployed Travel in the last 8 weeks: None household members: spouse housing: house caffeine: Yes ROS Obtained: Yes All systems reviewed & no additional complaints except as documented Eyes Eyes: Reports eye discharge Physical Exam General General appearance: alert Head Head exam: atraumatic and normocephalic Eye Eye exam: Present normal appearance, PERRL, EOMI and discharge ENT ENT exam: Present normal oropharynx and mucous membranes moist Expanded ENT Exam Nose exam: Present sinus tenderness Nasal speculum exam: Bilateral: other (clear drainage) Mouth exam: Present normal external inspection Teeth exam: Present normal inspection Throat exam: Present normal inspection Neck Neck exam: Present normal inspection Chest Chest inspection: Present normal inspection and symmetric chest wall rise Respiratory Respiratory exam: Present normal lung sounds bilaterally Cardiovascular Cardiovascular exam: Present regular rate, normal rhythm and normal heart sounds Abdominal Exam Abdominal exam: Present soft and normal bowel sounds Extremities Exam Extremities exam: Present normal inspection Back Exam Back exam: Present normal inspection Neurological Exam Neurological exam: Present alert and oriented X3 Psychiatric Psychiatric exam: Present normal affect and normal mood Skin Skin exam: Present warm, dry and intact Lymphatic Lymphatic Findings: no adenopathy Medical Decision Making Quan Inquiry Pt receivi
[2023-11-26 10:04] VITALS: BP 114/64; PULSE 97; RESP 19; TEMP 36.7; O2SAT 98
== END 2023-11-26 10:06 | disposition home or self-care (01) ==
PROVIDERS: Emergency Provider Physician Assistant; PCP Family Medicine
DX: H10.13 Acute atopic conjunctivitis, bilateral (principal)
CPT/HCPCS: 96372; 99212; 99214; G0463; J1100

== ENCOUNTER 2024-01-25 05:09 | Emergency (ER) | payer OTHER, SELFPAY ==
[2024-01-25 05:12] VITALS: BP 122/76; PULSE 127; RESP 16; TEMP 36.9; O2SAT 97; BMI 23.2
[2024-01-25 05:22] VITALS: BP 122/76; O2SAT 96
--- NOTE | 2024-01-25 05:23 | XR_ITS ---
PROCEDURE INFORMATION: Exam: XR Left Foot Exam date and time: 01/25/2024 5:30 AM Age: 43 years old Clinical indication: Patient HX: Open wounds 3rd, 4th, and 5th digits; Additional info: Open wounds, worsening cellulitic type changes TECHNIQUE: Imaging protocol: Radiologic exam of the left foot. Views: 3 or more views. COMPARISON: CR XR KNEE LT 3V 01/02/2021 2:40 PM FINDINGS: Bones/joints: Normal. Soft tissues: Perhaps mild swelling about the forefoot. IMPRESSION: Perhaps mild swelling about the forefoot without acute osseous abnormality. Known open wounds of the 3rd, 4th, 5th digits are not well appreciated on this examination.
[2024-01-25 05:30] VITALS: BP 144/77; PULSE 131; O2SAT 96
--- NOTE | 2024-01-25 05:36 | HMH.EDGENADL ---
Discharge Plan Disposition Patient Disposition: Home, Self-Care Condition: Good Prescriptions Prescriptions: New itraconazole 100 mg capsule 100 mg PO DAILY 14 Days Qty: 14 0RF Rx Instructions: must administer with a meal/food nystatin 100,000 unit/gram powder 1 applic topical DAILY Qty: 30 0RF Rx Instructions: Sprinkle in between the toes daily after cleaning. mupirocin 2 % ointment 1 applic topical BID Qty: 15 0RF Rx Instructions: Apply topically to affected areas after cleaning. Do NOT apply between the toes. sulfamethoxazole-trimethoprim [Bactrim DS] 800-160 mg tablet 1 tab PO BID 7 Days Qty: 14 0RF No Action loratadine 10 mg tablet 10 mg PO DAILY Qty: 30 0RF Referrals Follow up/Referrals: Sedrick Griffith MD [Primary Care Provider] - See instructions Petra Treviño DPM [Staff Physician] - See instructions Activity Restrictions/Add. Instructions Additional Instructions/Restrictions: Clean the affected area with betadine and then gently and loosely wrap with sterile gauze. Apply the topical nystatin powder between the toes after cleaning on a daily basis. Apply the mupirocin antibiotic ointment to the open wounds, but do NOT put the antibiotic ointment between your toes. Take your oral antibiotic and antifungal as prescribed. Follow-up early next week with podiatry. Please call Dr. Treviño's office to schedule an appointment. Take Tylenol and ibuprofen at home as needed for pain. Return to the emergency department for new or worsening symptoms. Clinical Impressions Clinical Impression: Cellulitis of all toes of left foot Fungal infection of foot Qualifiers: Laterality: bilateral Qualified Code(s): B35.3 - Tinea pedis Stand Alone Forms Stand Alone Forms: Work/School Release Instructions Patient Instructions: DI for Cellulitis -- Adult, DI for Athlete's Foot Print Language Print Language: Malay Discharge ED Provider: Felisa Flores General Adult HPI <Keira Casillas MD - Last Filed: 01/25/24 07:17> General Chief complaint: Skin/Abscess/Foreign Body Stated complaint: L foot open wound, toes turning purple Time Seen by Provider: 01/25/24 05:23 History of Present Illness HPI narrative: 43-year-old female presents to the ER with concerns of wound on her left foot, toes turning purple. Patient reports about a week ago she had itching of the toes and thought she was developing athlete's foot. She states she tried multiple different powders but it did not seem to be getting better so she added an antibacterial ointment. Patient states she is religiously changing her socks multiple times a day. She states she has a doctor's appointment scheduled tomorrow for the problems since it did not seem to be getting better, however this morning she woke up in the skin on the left toes had peeled off and she had an open wound. She noted that the toes appeared very dark red/almost purple and she became concerned for infection so she came to the ER. Patient states she has anxiety about medications other than topical ones so she is hesitant to take anything oral. Patient has no known history of diabetes, no known immunosuppression. Patient states she also has some athlete's foot changes on her right foot however the skin changes are not overall as bad as the left. ROS otherwise negative. Related Data Previous Rx's ?Medication ?Instructions ?Recorded loratadine 10 mg tablet 10 mg PO DAILY #30 tabs 09/26/23 itraconazole 100 mg capsule 100 mg PO DAILY 14 days #14 caps 01/25/24 mupirocin 2 % topical ointment 1 applic topical BID #15 grams 01/25/24 nystatin 100,000 unit/gram topical 1 applic topical DAILY #30 grams 01/25/24 powder sulfamethoxazole 800 1 tab PO BID 7 days #14 tabs 01/25/24 mg-trimethoprim 160 mg tablet (Bactrim DS) Allergies Allergy/AdvReac Type Severity Reaction Status Date / Time levofloxacin [From Levaquin] AdvReac Agitated Verified 09/26/23 10:19 [facility] <Keira Casillas MD - Last Filed: 01/25/24 07:17> [facility] Disclaimer: The information contained in this section may have been updated after the patient was seen, as this information can be updated by other users. Medical History Anxiety Asthma Depression Kidney stone Migraine Urinary tract infection Surgical History History of section History of dilation and curettage History of tubal ligation Family History Other No significant family history Social History Smoking Status: Current every day smoker tobacco type: cigarettes packs per day: 1 alcohol intake: never substance use type: denies use current occupational status: unemployed Travel in the last 8 weeks: None household members: spouse housing: house caffeine: Yes Other Medical History Have you received the Flu Vaccine for this season: No Have you received the Pneumonia Vaccine: No <Keira Casillas MD - Last Filed: 01/25/24 07:17> ROS Obtained: Yes All systems reviewed & no additional complaints except as documented Positive ROS per HPI Physical Exam <Keira Casillas MD - Last Filed: 01/25/24 07:17> General General appearance: alert and in no apparent distress Head Head exam: atraumatic and normocephalic Eye Eye exam: Present PERRL and EOMI ENT ENT exam: Present mucous membranes moist Neck Neck exam: Present normal inspection and full ROM Chest Chest inspection: Present symmetric chest wall rise Respiratory Respiratory exam: Absent respiratory distress or stridor Cardiovascular Cardiovascular exam: Present normal rhythm and tachycardia Extremities Exam Extremities exam: Present full ROM and other (Bilateral feet appear to have flaky wet skin between all the toes, skin is very irritated and peeling between the toes but negative Nikolsky's) Expanded Lower Extremity Exam Left: Foot/toe exam: Present swelling, erythema and other (Wound overlying third and fourth phalange on the dorsal aspect of the left toes, skin appears to be sloughing, negative Nikolsky's. There is significant erythema of all the left toes except the hallux, third and fourth toe are especially dark red, brisk capillary refill, neurovascularly intact) Right: Foot/toe exam: Present other (Mild erythema of all toes except the hallux on the right foot, neurovascularly intact, there does appear to be flaky, dry skin as well as peeling skin between the toes, no induration, negative Nikolsky's) Neurological Exam Neurological exam: Present alert and oriented X3; Absent motor sensory deficit Psychiatric Psychiatric exam: Present normal affect, normal mood and anxious Skin Skin exam: Present warm and dry Medical Decision Making <Keira Casillas MD - Last Filed: 01/25/24 07:17> Medical Records Medical records reviewed: Yes I reviewed the patient's medical records. Screening: Per USPSTF and CDC recommendations, given the prevalence of disease in our region, it is our hospital?s policy to screen for HIV and viral Hepatitis for all patients aged 18 and over and those with ongoing risk factors. MR Comment: Patient was evaluated by Teri Dixon on 11/26/2023 and diagnosed with allergic conjunctivitis. Treated with loratadine. Quan Inquiry Pt receiving controlled substance: No Vital Signs: 01/25/24 05:12 01/25/24 05:22 01/25/24 05:30 Temperature 98.4 F Temperature Source Oral Pulse Rate 131 H Pulse Rate [Right] 127 H Respiratory Rate 16 Blood Pressure 122/76 144/77 H Blood Pressure [Right Radial Artery] 122/76 Blood Pressure Mean [Right Radial Artery] 91 02 Sat by Pulse Oximetry 97 96 96 Oxygen Delivery Method Room Air Lab Data Lab Results 01/25/24 05:32: WBC 8.9, RBC 4.53, Hgb 14.4, Hct 42.7, MCV 94.1, MCH 31.7 H, MCHC 33.7, RDW 13.6, Plt Count 188, MPV 7.6, Neut % (Auto) 76.0, Lymph % (Auto) 15.3, [place] % (Auto) 6.0, Eos % (Auto) 2.2, Baso % (Auto) 0.6, Neut # (Auto) 6.8, Lymph # (Auto) 1.4, [place] # (Auto) 0.5, Eos # (Auto) 0.2, Baso # (Auto) 0.1, ESR 22 H, Sodium 136, Potassium 3.7, Chloride 104, Carbon Dioxide 23, Anion Gap 12.7, BUN 12, Creatinine 0.70, Estimated Creat Clear 95, Estimated GFR 92, Est GFR ( Amer) 111, Glucose 119 H, Calcium 9.1, Total Bilirubin 0.6, AST 22, ALT 17, Alkaline Phosphatase 128 H, C-Reactive Protein 11.1 H, Total Protein 7.3, Albumin 4.2, Globulin 3.1, Albumin/Globulin Ratio 1.4 01/25/24 05:32 01/25/24 05:32 Orders (Tests/Meds): ED MEDICATIONS Discontinued Medications Generic Name Dose Route Start Last Admin Trade Name Arnaldo PRN Reason Stop Dose Admin Mupirocin 1 gm 01/25/24 07:38 01/25/24 07:54 Mupirocin 2% Ointment 22gm Tube TP 01/25/24 07:39 1 gm ONCE ONE Administration Nystatin 1 gm 01/25/24 07:38 01/25/24 07:53 Nystatin Topical Powder 30gm TP 01/25/24 07:39 1 gm ONCE ONE Administration ORDERS Category Date Time Status Foot XR left minimum 3 views [XR foot LT min 3V] Stat Exams 01/25/24 05:23 Completed CBC w/Auto Diff [Complete Blood Count Auto Diff] Stat Lab 01/25/24 05:32 Completed CMP [Comprehensive Metabolic Panel] Stat Lab 01/25/24 05:32 Completed CRP [C-Reactive Protein] Stat Lab 01/25/24 05:32 Completed ESR [Erythrocyte Sedimentation Rate] Stat Lab 01/25/24 05:32 Completed HIV (1&2) Antibody Rapid Stat Lab 01/25/24 05:32 Received Hemoglobin A1C Stat Lab 01/25/24 05:32 Received Hep C Ab with Reflex to RNA Stat Lab 01/25/24 05:32 Received Medical Decision Narrative: In summary, this 43-year-old female presents to the emergency department today with toe redness, skin sloughing, wounds. On initial evaluation patient is hemodynamically stable though she is tachycardic on arrival, she appears anxious. Afebrile. Bilateral feet exam notable for erythema, skin sloughing but negative Nikolsky's, open wounds, induration worse on the left than the right. Differential diagnosis includes but is not limited to cellulitis, advanced tinea pedis, I considered possibility of immunosuppression, diabetes, osteomyelitis. Based on these concerns, I ordered serum labs, x-ray of left foot. Labs personally interpreted demonstrate no leukocytosis or anemia, normal platelets, CMP nonactionable, A1c pending but based on current labs lower suspicion for diabetes. X-ray personally interpreted does not demonstrate acute osseous abnormality, I do not appreciate osteomyelitis or gas. See radiology read for final interpretation. Patient handed off to Dr. Flores pending completion of labs and discussion with podiatry when they become available this morning. <Felisa Flores, DO - Last Filed: 01/25/24 08:16> Vital Signs: 01/25/24 05:12 01/25/24 05:22 01/25/24 05:30 Temperature 98.4 F Temperature Source Oral Pulse Rate 131 H Pulse Rate [Right] 127 H Respiratory Rate 16 Blood Pressure 122/76 144/77 H Blood Pressure [Right Radial Artery] 122/76 Blood Pressure Mean [Right Radial Artery] 91 02 Sat by Pulse Oximetry 97 96 96 Oxygen Delivery Method Room Air Lab Data Lab Results 01/25/24 05:32: WBC 8.9, RBC 4.53, Hgb 14.4, Hct 42.7, MCV 94.1, MCH 31.7 H, MCHC 33.7, RDW 13.6, Plt Count 188, MPV 7.6, Neut % (Auto) 76.0, Lymph % (Auto) 15.3, [place] % (Auto) 6.0, Eos % (Auto) 2.2, Baso % (Auto) 0.6, Neut # (Auto) 6.8, Lymph # (Auto) 1.4, [place] # (Auto) 0.5, Eos # (Auto) 0.2, Baso # (Auto) 0.1, ESR 22 H, Sodium 136, Potassium 3.7, Chloride 104, Carbon Dioxide 23, Anion Gap 12.7, BUN 12, Creatinine 0.70, Estimated Creat Clear 95, Estimated GFR 92, Est GFR ( Amer) 111, Glucose 119 H, Calcium 9.1, Total Bilirubin 0.6, AST 22, ALT 17, Alkaline Phosphatase 128 H, C-Reactive Protein 11.1 H, Total Protein 7.3, Albumin 4.2, Globulin 3.1, Albumin/Globulin Ratio 1.4 Orders (Tests/Meds): ED MEDICATIONS Discontinued Medications Generic Name Dose Route Start Last Admin Trade Name Freq PRN Reason Stop Dose Admin Mupirocin 1 gm 01/25/24 07:38 01/25/24 07:54 Mupirocin 2% Ointment 22gm Tube TP 01/25/24 07:39 1 gm ONCE ONE Administration Nystatin 1 gm 01/25/24 07:38 01/25/24 07:53 Nystatin Topical Powder 30gm TP 01/25/24 07:39 1 gm ONCE ONE Administration ORDERS Category Date Time Status Foot XR left minimum 3 views [XR foot LT min 3V] Stat Exams 01/25/24 05:23 Completed CBC w/Auto Diff [Complete Blood Count Auto Diff] Stat Lab 01/25/24 05:32 Completed CMP [Comprehensive Metabolic Panel] Stat Lab 01/25/24 05:32 Completed CRP [C-Reactive Protein] Stat Lab 01/25/24 05:32 Completed ESR [Erythrocyte Sedimentation Rate] Stat Lab 01/25/24 05:32 Completed HIV (1&2) Antibody Rapid Stat Lab 01/25/24 05:32 Received Hemoglobin A1C Stat Lab 01/25/24 05:32 Received Hep C Ab with Reflex to RNA Stat Lab 01/25/24 05:32 Received Medical Decision Narrative: In summary, this 43-year-old female presents to the emergency department today with toe redness, skin sloughing, wounds. On initial evaluation patient is hemodynamically stable though she is tachycardic on arrival, she appears anxious. Afebrile. Bilateral feet exam notable for erythema, skin sloughing but negative Nikolsky's, open wounds, induration worse on the left than the right. Differential diagnosis includes but is not limited to cellulitis, advanced tinea pedis, I considered possibility of immunosuppression, diabetes, osteomyelitis. Based on these concerns, I ordered serum labs, x-ray of left foot. Labs personally interpreted demonstrate no leukocytosis or anemia, normal platelets, CMP nonactionable, A1c pending but based on current labs lower suspicion for diabetes. X-ray personally interpreted does not demonstrate acute osseous abnormality, I do not appreciate osteomyelitis or gas. See radiology read for final interpretation. Patient handed off to Dr. Flores pending completion of labs and discussion with podiatry when they become available this morning. Mark DO: I had an interactive discussion with Dr. Treviño with podiatry who advised she recommends Betadine dressings, topical nystatin powder between the toes, topical mupirocin on the outside surfaces of the toes but not between the toes for risk of further maceration, oral Bactrim x 7 days, and oral itraconazole x 2 weeks. I did give the patient prescriptions for all of these things as well as instructions for care and dressings. Initial dressing was applied here and instructions were discussed with the patient. I also advised that she follow-up very closely with Dr. Treviño next week for reassessment. Patient is agreeable with this. Ultimately, it is felt the patient is appropriate for discharge home. Strict return precautions were given as well as instructions for close follow-up. Critical Care <Keira Casillas MD - Last Filed: 01/25/24 07:17> Critical Care Time Critical Care Time: No
[2024-01-25 05:40] LABS: Basophils # 0.1 K/mm3 (0-0.2); Basophils % 0.6 % (0.1-2.0); Eosinophils # 0.2 K/mm3 (0.0-0.4); Eosinophils % 2.2 % (0.1-12.0); Hematocrit 42.7 % (37.0-47.0); Hemoglobin 14.4 g/dL (12.2-16.2); Lymphocytes # 1.4 K/mm3 (0.7-4.5); Lymphocytes % 15.3 % (10-50); Mean Corpuscular HGB Conc 33.7 g/dL (31.8-35.4); Mean Corpuscular Hemoglobin 31.7 pg (27.0-31.2); Mean Corpuscular Volume 94.1 fl (81-99); Mean Platelet Volume 7.6 fl (7.4-10.4); Monocytes # 0.5 K/mm3 (0.1-1.0); Neutrophils # 6.8 K/mm3 (1.8-7.8); Platelet Count 188 K/mm3 (142-424); Red Blood Count 4.53 M/mm3 (4.20-5.40); Red Cell Distribution Width 13.6 % (11.5-17.5); White Blood Count 8.9 K/mm3 (4.8-10.8)
[2024-01-25 05:44] LABS: Albumin Level 4.2 g/dl (3.5-5.0); Chloride 104 mmol/L (98-107); Potassium 3.7 mmoL/L (3.5-5.1); Sodium 136 mmol/L (136-145)
[2024-01-25 05:47] LABS: Alanine Aminotransferase 17 U/L (12-78); Albumin/Globulin Ratio 1.4 (1.1-1.8); Alkaline Phosphatase 128 U/L (38-126); Anion Gap 12.7 mEq/L (5-15); Aspartate Amino Transferase 22 U/L (14-36); Bilirubin,Total 0.6 mg/dl (0.2-1.3); Blood Urea Nitrogen 12 mg/dl (7-17); Calcium 9.1 mg/dl (8.4-10.2); Carbon Dioxide 23 mmol/L (22.0-30.0); Creatinine Clearance Estimated 95 mL/min (50-200); Estimated Glomerular Filt Rate 92 ml/min (>60); GFR (African American) 111 ML/MIN (>60); Globulin 3.1 g/dL (1.3-3.2); Glucose 119 mg/dl (74-100); Total Protein,Serum 7.3 g/dl (6.3-8.2)
[2024-01-25 05:53] LABS: C-Reactive Protein 11.1 mg/L (0-4)
[2024-01-25 07:20] LABS: Erythrocyte Sedimentation Rate 22 mm/hr (0-20)
[2024-01-25] MEDS: NYSTATIN TOPICAL POWDER 30GM TP (07:53)
[2024-01-25] MEDS: MUPIROCIN 2% OINTMENT 22GM TUBE TP (07:54)
[2024-01-25 08:28] VITALS: BP 144/77; PULSE 90; RESP 16; TEMP 36.7; O2SAT 96
[2024-01-25 09:55] LABS: Hemoglobin A1C 5.3 % (4.0-6.0)
[2024-01-25 11:10] LABS: HIV (1&2) Antibody Rapid NONREACTIVE (NONREACTIVE)
[2024-01-26 09:33] LABS: HCV Ab Non Reactive (Non Reactive)
== END 2024-01-25 08:30 | disposition home or self-care (01) ==
PROVIDERS: Emergency Medicine; Emergency Provider Emergency Medicine; PCP Family Medicine
DX: L03.032 Cellulitis of left toe (principal); B35.2 Tinea manuum; L29.9 Pruritus, unspecified
CPT/HCPCS: 73630; 80053; 83036; 85025; 85651; 86140; 86803; 87389; 99283

== ENCOUNTER 2024-08-17 13:40 | Outpatient (CLI) | payer OTHER, SELFPAY ==
--- NOTE | 2024-08-17 13:52 | US_ITS ---
PROCEDURE: US TRANSVAGINAL CLINICAL INDICATION: PELVIC PAIN COMPARISON: No exams were available for comparison FINDINGS: Transvaginal sonographic images of the pelvis were obtained. UTERUS: 8.9cm x 4.9 cmx 4.1cm anteverted with a combined endometrial thickness of 3.8mm. There are multiple small nabothian cysts in the cervix. The largest measures 0.68 cm The endometrial basalis is irregular and this may be consistent with adenomyosis. The myometrium is heterogenous and there is shadowing at the fundus of the uterus. A scar is seen. LEFT OVARY: [id number] with a volume of 21.7ml. There are least 3 follicles in the left ovary. Follicle 1. 3.0 cm 2.0 cm and has a ground-glass appearance consistent with a resolving hemorrhagic cyst. Follicle 2. 2.4 cm x 1.7 cm Follicle 3. 2.3 cm x 1.9 cm RIGHT OVARY: Not visualized and may be surgically absent. Left ovary is visualized. Doppler flow to the left ovary is seen. There is no fluid in the cul-de-sac. IMPRESSION: 1. Anteverted, bulky uterus. The endometrium is thin. The endometrial basalis is irregular and this may represent adenomyosis. The myometrium is heterogenous. 2. The right ovary is not visualized. The left ovary contains a hemorrhagic cyst measuring 3.0 cm. Suggest follow-up in 8 weeks to see its resolution. There are 2 follicles measuring 2.4 cm and 2.3 cm. 3. No fluid in the cul-de-sac. Dictated by: Papo Collins MD 08/18/2024 10:56 Papo Collins MD in [facility] 08/18/2024 10:56
== END 2024-08-17 23:59 | disposition home or self-care (01) ==
LOC: RAD 13:41
PROVIDERS: PCP Nurse Practitioner; Visit Provider Nurse Practitioner
DX: N88.8 Other specified noninflammatory disorders of cervix uteri (principal)
CPT/HCPCS: 76830

== ENCOUNTER 2024-10-23 07:10 | Outpatient (CLI) | payer OTHER, SELFPAY ==
--- NOTE | 2024-10-23 07:12 | US_ITS ---
FINAL REPORT TECHNIQUE: Multiple transverse and longitudinal images CLINICAL HISTORY: ABD PAIN FINDINGS: The gallbladder shows no wall thickening, distention or stone disease. No biliary ductal dilatation is appreciated. No fluid collections are seen. Limited portions of the right liver are unremarkable. Limited portions of the right kidney are unremarkable. Pancreas is largely obscured. IMPRESSION: 1. No evidence of cholelithiasis 2. No evidence of biliary obstruction Reviewed, Interpreted and Dictated by Dana Pollard MD Transcribed by Sepideh Robertson Authenticated and [facility]
--- NOTE | 2024-10-23 08:00 | US_ITS ---
PROCEDURE: US TRANSVAGINAL CLINICAL INDICATION: f/u for ovarian cyst COMPARISON: US US TRANSVAGINAL from 08/17/2024 FINDINGS: Transvaginal sonographic images of the pelvis were obtained. UTERUS: 8.9cm x 4.8 cmx 3.7 cm anteverted with a combined endometrial thickness of 5.4mm. There are multiple small nabothian cysts in the cervix. The anterior fundal myometrium is heterogenous and contains hyperechoic areas. LEFT OVARY: 3.4cmx2.2cmx2.0cm with a volume of 7.7ml. There is a follicle in the left ovary that measures 2.1 cm x 1.7 cm x 1.7 cm. The previously described hemorrhagic cyst in the left ovary has now resolved. RIGHT OVARY: 1.7 cmx 1.8 cmx0.9 cm with a volume of 1.4ml. Both ovaries are seen and appear normal. Doppler flow to both ovaries are seen. There is no fluid in the cul-de-sac. IMPRESSION: 1. Anteverted uterus normal in shape and size. The endometrium is thin measuring 5.4 mm. There are hyperechoic areas in the fundus of the uterus and the myometrium there appears heterogenous. 2. Both ovaries are seen and appear normal. The left ovary contains a 2.1 cm follicle. The previously described left hemorrhagic cyst has now completely resolved. 3. No fluid in the cul-de-sac. Dictated by: Papo Collins MD 10/23/2024 16:27 Papo Collins MD in [facility] 10/23/2024 16:27
--- NOTE | 2024-10-23 08:30 | MM_ITS ---
PROCEDURE INFORMATION: Exam: MG Bilateral Screening 3D Mammography Exam date and time: 10/23/2024 7:39 AM Age: 44 years old Clinical indication: Screening examination. TECHNIQUE: Imaging protocol: Bilateral Screening tomosynthesis and 2D mammography including computer-aided detection (CAD) when performed. COMPARISON: No relevant prior studies available. FINDINGS: MAMMOGRAPHY: Breast composition: There are scattered areas of fibroglandular density. Mass: None. Architectural distortion: None. Calcifications: No suspicious calcifications. Asymmetric density: None. Skin thickening: None. Axillary adenopathy: None. IMPRESSION: No mammographic evidence of malignancy. Annual screening is recommended unless otherwise clinically indicated. ASSESSMENT: BI-RADS Category 1: Negative.
== END 2024-10-23 23:59 | disposition home or self-care (01) ==
LOC: RAD 07:11
PROVIDERS: PCP Family Medicine; Visit Provider Nurse Practitioner
DX: Z12.31 Encounter for screening mammogram for malignant neoplasm of breast (principal); R92.323 Mammographic fibroglandular density, bilateral breasts; N88.8 Other specified noninflammatory disorders of cervix uteri; N83.202 Unspecified ovarian cyst, left side; R10.9 Unspecified abdominal pain
CPT/HCPCS: 76705; 76830; 77063; 77067